=== PATIENT | female | born 1965 | race Caucasian/White ===

== ENCOUNTER 2023-10-13 13:52 | Outpatient (REF) | payer OTHER, SELFPAY ==
[2023-10-16 22:53] LABS: HPV mRNA E6/E7 Not Detected (Not Detected)
== END 2023-10-13 13:53 | disposition home or self-care (01) ==
LOC: HO.LNP 13:52
PROVIDERS: Visit Provider Obstetrics & Gynecology
DX: N93.9 Abnormal uterine and vaginal bleeding, unspecified (principal); N95.0 Postmenopausal bleeding
CPT/HCPCS: 58100; 87624; 88175; 88305; 99202

== ENCOUNTER 2023-10-13 13:52 | Outpatient (AMB) | payer OTHER, SELFPAY ==
--- NOTE | 2023-10-13 14:01 | A.OFFVIS_ITS ---
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 Required: No Information Interpreted: non-clinical & clinical Extrusion Bender: Extrusion Bender Present (Verónica Jaureguimarizol HUNG) Accompanied by: Self / Same As Patient Allergies No Known Allergies Allergy (Verified 10/13/23 14:06) Post menopausal: Yes HPI Comments Details: Presenting complaining of vaginal bleeding occurred a week ago, the patient went to the emergency room at [facility] had an ultrasound, endometrium was obscured the right and left ovary was on seeing the was no evidence of fibroid or adenomyosis or any other abnormality PFSH Medical History Encounter for Essure implantation HTN (hypertension) Hx of breast cancer Surgical History H/O lumpectomy Family History Father HTN (hypertension) Skin cancer Stroke Mother ALS (amyotrophic lateral sclerosis) Skin cancer Social History Household Members Other:: daughter Housing: House Alcohol intake: current Alcohol intake frequency: holidays/special occasions only Patient Tobacco Use Status: Former Tobacco user Tobacco use type: Cigarette Current occupational status: employed 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 Sexually active: Yes Sexual orientation: Straight/Heterosexual Gender identity: Female Review of Systems Const All systems reviewed & are unremarkable except as noted in HPI and below Physical Exam Vital Signs: Last Vital Signs BP 114/70 10/13/23 14:04 BMI result Body Mass Index 40.7 General: Yes no CVA tenderness External Female Exam: normal external appearance and normal appearance of the ur ethra Speculum Exam - Vagina: normal appearance of the vagina, normal palpation, no lesions and no masses Speculum Exam - Cervix: normal appearance of the cervix, normal palpation, no lesions, no masses and nontender Bimanual exam- vagina & uterus: normal bimanual exam, normal palpation, uterine size normal, normal palpation, uterine shape normal, No Cervical tenderness present and non-tender Bimanual Exam- Adnexa, other: normal adnexae Back/Spine/Pelvis Back: no CVA tenderness Office Procedures Endometrial Biopsy Details: The patient was counseled regarding the indication and benefits of endometrial sampling to rule out endometrial pathology including not limited to endometrial hyperplasia or endometrial cancer and others; The alternatives (Either do nothi ng vs. hysteroscopy D&C) & the risks were discussed with the patient including but not limited: pain, uterine perforation, bleeding, infection, possible injury to bladder, bowel, ureter, possible need for blood transfusion with all its possible risks. The patient verbalized understanding all questions answered and signed consent. The patient was placed into the dorsal lithotomy position; a speculum was inserted in the vagina. Using aseptic technique for the procedure, the cervix was cleansed with Betadine. The anterior lip of the cervix was grasped with a single tooth tenaculum. The uterus was sounded to 7 cm with a 4 mm Pipelle was used. Tissues samples were obtained and placed in formalin, in a patient labeled container and sent to the pathology department. At the end of the procedure, there was minimal bleeding noted The patient tolerated the procedure well and was discharged in good condition with the following instructions: Nothing in the vagina until the bleeding stops. No sex until the bleeding stops, to call if any of the following occurs: fever (>100.4), flu-like symptoms, abdominal pain, heavy bleeding, four smelling vaginal discharge. The patient was instructed to schedule a Follow up appointment in 2 weeks to discuss pathology results of the biopsy and treatment options. This note was generated with a voice recognition program. Some errors may have been overlooked during the review of this note. Sometimes these errors may affect the content or meaning of a given sentence. 38317-Ptqraamrufl Biopsy Assessment & Plan Assessment & Plan (1) Postmenopausal bleeding: Code(s): N95.0 - Postmenopausal bleeding Category: Medical Plan: Discussed with the patient the differential diagnosis of post menopausal bleeding with normal pelvic exam including but not limited to, endometrial hyperplasia, cancer, polyps and other causes; co testing done, Discussed with the patient the pelvic ultrasound findings, the endometrial stripe thickenss was not measured because it was obscured. Recommended to the patient that the next step is an endometrial sampling via hysteroscopy D&C possible polypectomy versus endometrial biopsy to r/o endometrial pathology including hyperplasia or cancer. All the pros and cons risks and benefits of each approach were discussed with the patient, endometrial biopsy being less invasive, office procedure with less sensitivity and inability diagnose a polyp and removal versus hysteroscopy done under anesthesia more invasive more sensitive to endometrial cancer and possibility of diagnosing and endometrial polyp with the possibility of polypectomy. All questions were answered pt verbalized understanding and decided to proceed with endometrial biopsy. EMB done, see procedure note. Instructions given the patient to schedule a 2 week follow-up appointment. This note was generated with a voice recognition program. Some errors may have been overlooked during the review of this note. Sometimes these errors may affect the content or meaning of a given sentence. Orders: Orders PAP + HPV E6/E7 rfx 18/45 Today N93.9 - Abnormal uterine and vaginal bleeding, unspecified Surgical Today N93.9 - Abnormal uterine and vaginal bleeding, unspecified AMB Endometrial Biopsy Today N95.0 - Postmenopausal bleeding Coding Level of Care Code New Pt Level 3 (40756) Procedure Only Diagnoses Postmenopausal bleeding N95.0 CPT Codes Endometrial Biopsy - CPT: 38671-Rgdqpnhvoec Biopsy ([id number])
[2023-10-13 14:04] VITALS: BP 114/70; BMI 40.7
== END 2023-10-13 14:57 | disposition home or self-care (01) ==
PROVIDERS: Visit Provider Obstetrics & Gynecology
DX: N95.0 Postmenopausal bleeding (principal)
CPT/HCPCS: 58100; 99203

== ENCOUNTER 2023-10-21 09:12 | Outpatient (AMB) | payer OTHER, SELFPAY ==
--- NOTE | 2023-10-21 09:23 | A.OFFVIS_ITS ---
Vital Signs 10/21/23 09:27 Height 5 ft 3 in Weight 229 lb 4.492 oz BMI 40.6 Intake Visit Reasons: emb results Facility Sales And Admin: Facility Sales And Admin Present Allergies No Known Allergies Allergy (Verified 10/13/23 14:06) Is last menstrual period known: Yes Last menstrual period: 01/04/20 Post menopausal: No Patient : No Do you need a note to return to daycare/school/sports/work: Yes (for surgery on wednesday) HPI Comments Details: The patient is presenting after endometrial biopsy. The patient has no complaints, no vaginal bleeding, no feverishness chills or abdominal pain. The endometrial biopsy pathology report showed the following: - Fragments of endometrial polyp. - Background benign endometrium with extensive stromal and epithelial breakdown. - No atypia identified. [facility] Medical History Encounter for Essure implantation HTN (hypertension) Hx of breast cancer Surgical History H/O lumpectomy Family History Father HTN (hypertension) Skin cancer Stroke Mother ALS (amyotrophic lateral sclerosis) Skin cancer Social History Household Members Other:: daughter Housing: House Alcohol intake: current Alcohol intake frequency: holidays/special occasions only Patient Tobacco Use Status: Former Tobacco user Tobacco use type: Cigarette Current occupational status: employed 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 Sexual orientation: Straight/Heterosexual Gender identity: Female Female Reproductive History Menstrual Date of last menstrual period: 01/04/20 Total pregnancies: 2 Full term: 2 Review of Systems Card Reports as per HPI and Reports no additional complaints Resp Reports as per HPI and Reports no additional complaints GI Reports as per HPI and Reports no additional complaints Reports as per HPI Physical Exam Vital Signs: BMI result Body Mass Index 40.6 Const General: cooperative, healthy appearing and comfortable Resp Effort & Inspection: normal respiratory effort Auscultation: clear to auscultation bilaterally Percussion: percussion normal Cardio Palpation: normal PMI Rate: regular rate Rhythm: regular rhythm Heart sounds: no murmurs and no rubs Peripheral pulses: Peripheral pulses 2+ throughout GI Inspection: Yes normal to inspection Palpation (GI): Soft to palpation, nontender, no guarding, not rigid and No hepatosplenomegaly present Percussion: Yes normal to percussion Auscultation: normal bowel sounds Rectal Exam - Female: deferred Assessment & Plan Assessment & Plan (1) Postmenopausal bleeding: Comment: Endometrial polyp on EMB pathology Essure implants Code(s): N95.0 - Postmenopausal bleeding Category: Medical Plan: Discussed with the patient the results the pathology showing endometrial polyp. Recommended hysteroscopy D&C possible polypectomy/myomectomy. Discussed with the patient the procedure , all benefits and risks including but not limited to inability to complete the procedure , insufficient endometrial tissue for a complete evaluation of the endometrial cavity , bleeding, infection, possible need for blood transfusion with all its risk ( HIV,syphilis, Hepatitis, anaphylaxis shock, others..), injury to bladder, rectum, possible need for laparoscopy/laparotomy or hysterectomy. The patient verbalized understanding and signed the consent. Instructions given the patient to stay NPO after midnight the day prior to the procedure and to take only the specific medication (s) discussed the morning of the surgical procedure and to schedule a 2 week postoperative appointment Coding Level of Care Code Est Pt Level 3 (51202) Diagnoses Postmenopausal bleeding N95.0
[2023-10-21 09:27] VITALS: BMI 40.6
== END 2023-10-21 09:52 | disposition home or self-care (01) ==
PROVIDERS: Visit Provider Obstetrics & Gynecology
DX: N95.0 Postmenopausal bleeding (principal)
CPT/HCPCS: 99213

== ENCOUNTER → 2023-10-21 09:12 | Outpatient (BNVA) | payer OTHER, SELFPAY | PROVIDERS: Visit Provider Obstetrics & Gynecology | DX: N95.0 Postmenopausal bleeding (principal) | CPT/HCPCS: 99212 ==

== ENCOUNTER 2023-11-05 09:14 | Day surgery (SDC) | payer OTHER, SELFPAY ==
[2023-11-03 07:39] VITALS: BMI 40.6
--- NOTE | 2023-11-03 13:06 | P.CONAN_ITS ---
Documented by User: Zohreh Amaya NP 11/03/23 13:07 HPI - Anesthesia Eval Consult details Narrative: 58yo F for D&C Hysteroscopy,possible myomectomy,possible polypectomy PMFSH Active Problems Active Problems: All Active Problems Postmenopausal bleeding (Acute) Past Medical History Medical History Encounter for Essure implantation HTN (hypertension) Hx of breast cancer Family History Family History Father HTN (hypertension) Skin cancer Stroke Mother ALS (amyotrophic lateral sclerosis) Skin cancer Surgical History Surgical History H/O lumpectomy Social History Social History Household Members Other:: daughter Housing: House Alcohol intake: current Alcohol intake frequency: holidays/special occasions only Patient Tobacco Use Status: Former Tobacco user Tobacco use type: Cigarette Use of substances other than those prescribed or required for medical reasons: No Are you DNR?: No Advance Directives: No Advance Directives Information Provided: Yes Recently lost weight without trying: No Current occupational status: employed 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 [employer] Sexual orientation: Straight/Heterosexual Gender identity: Female Meds Allergies Allergy/AdvReac Type Severity Reaction Status Date / Time No Known Allergies Allergy Verified 10/13/23 14:06 Home Medications ?Medication ?Instructions ?Recorded ?Confirmed ?Last Taken ?Type amlodipine 10 mg tablet 10 mg PO DAILY 10/13/23 Unknown History levothyroxine 50 mcg tablet 50 mcg PO DAILY 10/13/23 Unknown History olmesartan 20 mg tablet 30 mg PO 10/13/23 Unknown History Exam Height,Weight and Vital Signs: Height 5 ft 3 in Weight 103.873 kg Assessment and Plan Assessment Anesthesia Assessment: Chart Reviewed Documented by User: Monica Kwok MD 11/05/23 10:39 PMFSH Past Medical History Medical History Encounter for Essure implantation HTN (hypertension) Hx of breast cancer Family History Family History Father HTN (hypertension) Skin cancer Stroke Mother ALS (amyotrophic lateral sclerosis) Skin cancer Surgical History Surgical History H/O lumpectomy History of Problems with Anesthesia: No Social History Social History Household Members Other:: daughter Housing: House Alcohol intake: current Alcohol intake frequency: holidays/special occasions only Patient Tobacco Use Status: Former Tobacco user Tobacco use type: Cigarette Use of substances other than those prescribed or required for medical reasons: No Are you DNR?: No Advance Directives: No Advance Directives Information Provided: Yes Recently lost weight without trying: No Current occupational status: employed 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 Sexual orientation: Straight/Heterosexual Gender identity: Female Meds Allergies Allergy/AdvReac Type Severity Reaction Status Date / Time No Known Allergies Allergy Verified 10/13/23 14:06 Home Medications ?Medication ?Instructions ?Recorded ?Confirmed ?Last Taken ?Type amlodipine 10 mg tablet 10 mg PO DAILY 10/13/23 Unknown History levothyroxine 50 mcg tablet 50 mcg PO DAILY 10/13/23 Unknown History olmesartan 20 mg tablet 30 mg PO 10/13/23 Unknown History Exam Airway Mallampati Class: II TM Dist: >3cm Neck ROM: Full Loose/Missing/Broken Teeth: No Heart: RRR Lungs: CTA Assessment and Plan Assessment Anesthesia Assessment: Anesthesia Plan Discussed Final Anesthetic Review History of Problems with Anesthesia: No NPO: Yes ASA Class: II Final Preanesthetic Review: Meds/Allgs Chart Reviewed, Consent Obtained/Reviewed and Anes Risks/Benef Reviewed Patient Risk: Low Procedure Risk: Low Anesthetic Plan Anesthetic Plan: MAC: Disposition: Standard PACU
[2023-11-05 09:42] VITALS: BMI 41.6
[2023-11-05 09:57] VITALS: BP 132/67; PULSE 83; RESP 18; TEMP 36.9; O2SAT 98
[2023-11-05] MEDS: Lactated Ringers 1,000 ML 100 ML IVCONT (10:13)
--- NOTE | 2023-11-05 10:16 | MHC.SHP ---
Pre-Procedural Eval Section A - 24 Hr Update-Section A only Date of Service: 11/05/23 The patient is an INPATIENT: No Changes since office visit: No Cold of Flu in the past 2 weeks, No New Medical Problems, No Changes in Medication and No Patient answered all questions The patient has been examined within 24 hours of the surgical procedure. The History & Physical has been completed within 30 days and I have reviewed it.: Yes Section B - Complete if H&P > 30 days Chief Complaint: Postmenopausal bleeding Allergies: Allergies Allergy/AdvReac Type Severity Reaction Status Date / Time No Known Allergies Allergy Verified 10/13/23 14:06 Plan Diagnosis/Plan: Unchanged I have reviewed the history and physical and performed a pertinent physical examination on my patient. No changes have occurred unless specified. Time Spent With Patient Time: Total time managing care of this patient today ____ minutes.
[2023-11-05 10:53] VITALS: BP 103/55; PULSE 82; RESP 18; TEMP 36.6; O2SAT 98
--- NOTE | 2023-11-05 10:57 | PM.OP ---
Brief Operative Note Date of Service: 11/05/23 Pre-op diagnosis: Postmenopausal bleeding with a polyp on EMB pathology Post-op diagnosis: same Procedure: Hysteroscopy D&C, Polypectomy Surgeon: Cody Rosales MD Anesthesia: GLMA Was an Boilermaker Industrial Boilers used for this Procedure?: No Estimated blood loss (mL): 0 Pathology: other (Endometrial Scrapping. Polyp) Condition: stable Disposition: PACU
[2023-11-05 10:58] VITALS: BP 99/61; PULSE 74; RESP 18; O2SAT 98
--- NOTE | 2023-11-05 10:58 | P.OP_ITS ---
Operative Note Operative Note Date of Service: 11/05/23 Narrative: Preop Diagnosis: Postmenopausal bleeding with Endometrial polyp on EMB pathology Operation: Diagnostic Hysteroscopy, Dilataion & Curettage and polypectomy Post Op Diagnosis: Endometrial Polyp QBL: Minimal Anesthesia: GLMA Surgeon: Cody Rosales MD Chain Sales Consultant: None Complication: None Pathology: Endometrial Scrapings, Endometrial polyp Procedure: The patient was put in the dorsal lithotomy position, scrubbed, and draped in the usual manner. A sterile speculum was inserted in the patient's vagina. The anterior lip of the cervix was grasped with a single tooth tenaculum. The cervix was dilated up to 5 mm, then the scope was inserted in the patient's uterus. Inspection revealed endometrial polyp. The Myosure Reach device was used; it was introduced through the operative channel and polypectomy done with no complications. The scope was then taken out from the uterine cavity, sharp curettings was carried on with minimal to moderate amount of tissues retrieved. At the end of the procedure, all instruments were taken out of the patient uterine and vaginal cavity. The single tooth tenaculum was removed and homeostasis was assured using pressure,. The patient tolerated the procedure well and was transferred to the PACU in a stable condition.
[2023-11-05 11:03] VITALS: BP 107/66; PULSE 66; RESP 17; O2SAT 95
[2023-11-05 11:08] VITALS: BP 107/66; PULSE 66; RESP 17; TEMP 36.6; O2SAT 95
[2023-11-05 11:24] VITALS: BP 125/69; PULSE 68; RESP 18; TEMP 36.6; O2SAT 97
== END 2023-11-05 11:55 | disposition home or self-care (01) ==
PROVIDERS: PCP Nurse Practitioner Family; Visit Provider Obstetrics & Gynecology
PROC: 0UDB8ZZ Extraction of Endometrium, Via Natural or Artificial Opening Endoscopic (ICD-10-PCS; CPT 58558; principal; 2023-11-05 11:00)
DX: N95.0 Postmenopausal bleeding (principal); N84.0 Polyp of corpus uteri; I10 Essential (primary) hypertension; Z85.3 Personal history of malignant neoplasm of breast; Z79.899 Other long term (current) drug therapy; Z87.891 Personal history of nicotine dependence
CPT/HCPCS: 58558; 88305; J1100; J1885; J2250; J2405; J2704; J3010

== ENCOUNTER → 2023-11-05 09:14 | Outpatient (BNV) | payer OTHER, SELFPAY | PROVIDERS: PCP Nurse Practitioner Family; Visit Provider Obstetrics & Gynecology | DX: N95.0 Postmenopausal bleeding (principal); N84.0 Polyp of corpus uteri | CPT/HCPCS: 58558 ==

== ENCOUNTER 2023-11-15 13:40 | Outpatient (AMB) | payer OTHER, SELFPAY ==
--- NOTE | 2023-11-15 13:46 | A.OFFVIS_ITS ---
Vital Signs 11/15/23 13:48 Height 5 ft 3 in Weight 229 lb BMI 40.6 Intake Visit Reasons: post op Allergies No Known Allergies Allergy (Verified 10/13/23 14:06) HPI Comments Details: The patient is presenting post hysteroscopy D&C no complaints minimal vaginal bleeding no feverishness chills or abdominal pain. The pathology showed the following: A. Endometrium, curettage: Inactive endometrium; no atypia or hyperplasia identified. B. Endometrium, polypectomy: - Fragments of inactive endometrium with some features of endometrial polyp. - Prominent fragments of benign-appearing smooth muscle. - No atypia identified. Comment: The findings in part B may represent a leiomyoma as well. [facility] Medical History Encounter for Essure implantation HTN (hypertension) Hx of breast cancer Surgical History H/O lumpectomy Family History Father HTN (hypertension) Skin cancer Stroke Mother ALS (amyotrophic lateral sclerosis) Skin cancer Social History Household Members Other:: daughter Housing: House Alcohol intake: current Alcohol intake frequency: holidays/special occasions only Patient Tobacco Use Status: Former Tobacco user Tobacco use type: Cigarette Current occupational status: employed 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 Sexual orientation: Straight/Heterosexual Gender identity: Female Review of Systems Const All systems reviewed & are unremarkable except as noted in HPI and below Reports as per HPI and Reports no additional complaints GI Reports no additional complaints Reports no additional complaints Physical Exam Vital Signs: BMI result Body Mass Index 40.6 Assessment & Plan Assessment & Plan (1) Postmenopausal bleeding: Code(s): N95.0 - Postmenopausal bleeding Category: Medical Plan: Discussed with the patient the results of the endometrial biopsy. Discussed with the patient the sensitivity, specificity, positive and negative predictive value, of endometrial biopsy in detecting endometrial pathology including but not limited to endometrial hyperplasia, cancer and other pathology; instructed the patient to call in case vaginal bleeding bleeding recurs, the next step will be to proceed with further endometrial sampling evaluation to rule out endometrial pathology. All questions answered and the patient verbalized understanding and agreed with the plan. Coding Level of Care Code Est Pt Level 3 (28172) Diagnoses Postmenopausal bleeding N95.0
[2023-11-15 13:48] VITALS: BMI 40.6
== END 2023-11-15 14:28 | disposition home or self-care (01) ==
LOC: HO.HWS 13:40
PROVIDERS: PCP Nurse Practitioner Family; Visit Provider Obstetrics & Gynecology
DX: N95.0 Postmenopausal bleeding (principal)
CPT/HCPCS: 99213

== ENCOUNTER → 2023-11-15 13:40 | Outpatient (BNVA) | payer OTHER, SELFPAY | PROVIDERS: PCP Nurse Practitioner Family; Visit Provider Obstetrics & Gynecology | DX: N95.0 Postmenopausal bleeding (principal); Z98.890 Other specified postprocedural states | CPT/HCPCS: 99212 ==

== ENCOUNTER → 2023-12-09 14:21 | Outpatient (BNV) | payer OTHER, SELFPAY | PROVIDERS: PCP Nurse Practitioner Family; Visit Provider Internal Medicine Medical Oncology | DX: C50.911 Malignant neoplasm of unspecified site of right female breast (principal) | CPT/HCPCS: 99204 ==

== ENCOUNTER 2023-12-28 10:33 | Outpatient (AMB) | payer OTHER, SELFPAY ==
--- NOTE | 2023-12-28 10:53 | MHC.PC.OV ---
Vital Signs 12/28/23 10:56 Height 5 ft 3 in Weight 235 lb 2 oz BMI 41.6 BP 136/74 Blood Pressure Location Lt brachial Position Sitting Respiration 15 Pulse 97 Pulse Source Pulse Oximeter Pulse Oximetry (%) 97 Oxygen Delivery Method Room Air Intake Visit Reasons: REED DIPPER-f/u meds Intake Note: new patient to establish care Allergies No Known Allergies Allergy (Verified 12/28/23 11:14) Medication List - Last Reconciled 12/28/23 by Noemi Blackman [facility]- amlodipine 10 mg PO DAILY levothyroxine 50 mcg PO DAILY olmesartan 30 mg PO DAILY Tobacco use date assessed: 12/28/23 Dental Screening Dental Screen Date: 12/28/23 Did you have a dental visit in the last 12 months?: Yes Did you have a dental problem in the last 6 months where you did not have access to dental care?: No Was dental information given to patient?: Patient has dentist HPI HPI Comments History of Present Illness Details 58 y/o with right breast cancer lower outer quadrant Stage 1: pT1c, pN0 ER and ID positive, HER2 [place] negative s/p excision followed by radiation therapy, HTN, hypothyroid, IFG, obesity, tubular adenoma, L frozen shoulder, hyperlipidemia, fatty liver s/p Excisional biopsy of the breast/radioactive seed 12/22/2017, hysteroscopy D&C 2023 FAMILY HISTORY: Mom had ALS. Maternal grandma had breast cancer at the age of 68. Both mom and dad had skin cancer. Dad of heart attack. Mom had osteoporosis. 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 She is . Has 3 children. He smoked a pack a day quit 28 years ago. She drinks socially. Health Maintenance Pap 10/13/23 WNL Colon 10/17/2018 [facility] tubular adenoma, repeat 2023 referred to [facility] Mammo 12/11/23 [place] - need report DEXA ordered by [facility], results ... [facility] [employer] Heme q 6 mo GI Ortho Labs 12/09/23 normal CBC, Bun 25, Cr 1.37 egfr40 otherwise normal CMP, Vit D normal [facility]. Old records reviewed. Wants to talk about her weight. Did wt watchers in the past. Started Noom 2 days ago. Will see how this goes, wonders about meds. Has never taken meds for wt loss. Has never worked w/ shield installer. Tries to get 7000 steps/day. Mild VALERIO does not think needs counseling declined meds trouble falling asleep lately Has been getting muscle cramps taking pickle juice with + effect BP controlled on current meds Tolerant and compliant of levothyroxine. Denies nodules or surgery. Denies sx. Due for repeat colon; needs referral Exam: Awake alert NAD Thyroid nontender RRR LS CTAB No edema in BLE Mood and affect appropriate Plan: Check labs today - normal except elevated cholesterol and mild increase in LFTs If TPO AB negative and TSH normal consider stopping levothyroxine If + will cont on and titrate to euthyroid Cont BP med at this time Check labs to see if anything is contributing to wt gain/muscle cramps Refer to [facility] GI for repeat colon RTO 3-4 weeks to discuss labs and come up w a treatment plan, sooner PRN This note is constructed using voice recognition software. While every effort has been made to ensure accuracy in retail pharmacy technician, still errors may have been included Sometimes, these errors may affect the content or meaning of the given sentence . Total time spent caring for the patient today was 45 minutes. This includes time spent before the visit reviewing the chart, time spent during the visit, and time spent after the visit on documentation [facility] Medical History (Updated 12/28/23 @ 16:46 by Noemi Blackman, [facility]) Thyroid disease Encounter for Essure implantation HTN (hypertension) Hx of breast cancer Surgical History (Updated 12/09/23 @ 14:56 by Christianne Galaviz MD) H/O lumpectomy Family History (Updated 12/28/23 @ 10:59 by Destiny Calero MA) Father HTN (hypertension) Skin cancer Stroke Substance abuse Mother ALS (amyotrophic lateral sclerosis) Skin cancer Social History (Updated 12/28/23 @ 10:59 by Destiny Calero MA) Household Members: Family Household Members Other:: daughter Housing: House Are you a primary eye care professional to a significant other at home: Yes Do you presently have visiting nurse or other home services: No Alcohol intake: current Alcohol intake frequency: holidays/special occasions only Patient Tobacco Use Status: Former Tobacco user Tobacco use type: Cigarette e-Cigarette/Vaping Use: Never Used service: No Current occupational status: employed 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 Sexual orientation: Straight/Heterosexual Gender identity: Female Cognitive needs: No Hearing needs: No Vision needs: Yes (contacts) Questionnaire PHQ-9 Over the last 2 weeks, how often have you been bothered by any of the following problems? 1. Little interest or pleasure in doing things: not at all 2. Feeling down, depressed, or hopeless: not at all 3. Trouble falling or staying asleep, or sleeping too much: several days 4. Feeling tired or having little energy: several days 5. Poor appetite or overeating: several days 6. Feeling bad about yourself - or that you are a failure or have let yourself or your family down: not at all 7. Trouble concentrating on things, such as reading the newspaper or watching television: not at all 8. Moving or speaking so slowly that other people could have noticed. Or the opposite - being so fidgety or restless that you have been moving around a lot more than usual: not at all 9. Thoughts that you would be better off or of hurting yourself in some way: not at all Total score: 3 Depression Screening Interpretation: Negative Depression Screening Done: Yes 67786 - PHQ-9 Billing: Yes Source: Developed by Drs. Octavio Rosario, Jaida Butterfield, Sebastian Zaragoza and colleagues, with an educational elisabeth from [employer]. Thrive Questionnaire Date Thrive assessed: 12/28/23 I am a: Patient What is your living situation today?: I have a steady place to live Within the past 12 months, did the food you bought not last and you didn't have the money to get more?: Never true Within the past 12 months, did you worry whether your food would run out before you got money to buy more?: Never true Do you have trouble paying for medicines?: No Do you have trouble getting transportation to medical appointments?: No Do you have trouble paying your heating and electricity bill?: No Do you have trouble taking care of your child, family member or friend?: No Do you have trouble with day-to-day activities such as bathing, preparing meals, shopping, managing finances, etc.?: No Are you currently unemployed and looking for a job?: No Are you interested in more education?: No Please select the resources that you would like help with: None Currently or been in a relationship where the following occur: No concerns reported THRIVE Score: 0 AUDIT C Alcohol Use Questionnaire (AUDIT-C) 1. How often do you have a drink containing alcohol?: 2-4 times a month 2. How many drinks containing alcohol do you have on a typical day when you are drinking?: 3 or 4 3. How often do you have six or more drinks on one occasion?: Never Total Score: 3 Score Reviewed/Action Taken: Yes VALERIO-7 AMB Questionnaire VALERIO-7 Date VALERIO - 7 assessed: 12/28/23 Feeling nervous, anxious, or on edge: 1 = Several days Not being able to stop or control worryin = Several days Worrying too much about different things: 1 = Several days Trouble relaxin = Not at all Being so restless that it is hard to sit still: 0 = Not at all Becoming easily annoyed or irritable: 0 = Not at all Feeling afraid as if something awful might happen: 0 = Not at all Total VALERIO-7 score (0-4 normal; 5-9 mild; 10-14 moderate; 15-21 severe): 3 Source: Developed by Drs. Octavio Rosario, Jaida Butterfield, Sebastian Zaragoza and colleagues, with an educational elisabeth from [employer]. VALERIO-7 Assessment Billing VALERIO-7 Assessment Tool: VALERIO-7 Assessment 18907 Physical exam (Primary Care) Vital Signs: Last Vital Signs Pulse 97 12/28/23 10:56 Resp 15 12/28/23 10:56 BP 136/74 12/28/23 10:56 Pulse Ox 97 12/28/23 10:56 Oxygen Delivery Method Room Air 12/28/23 10:56 BMI result Body Mass Index 41.6 BMI Assessment/Plan discussion: High BMI High, discussed plan: lifestyle Tobacco/Smoking Status: Tobacco use Status Tobacco use date assessed 12/28/23 12/28/23 11:00 Patient Tobacco Use Status Former Tobacco user 12/28/23 10:59 Tobacco use type Cigarette 12/28/23 10:59 e-Cigarette/Vaping Use Never Used 12/28/23 11:00 PHQ-9: PHQ-9 Score PHQ-9: Total score 3 12/28/23 15:12 Depression Screening Interpretation: Negative Thrive Assessment: Date of Thrive Assessment Date Thrive assessed 12/28/23 12/28/23 10:55 Currently or been in a relationship where the following occur: No concerns reported Coding Level of Care Code New Pt Level 4 (36394) Complex EM visit Add On G2211 Diagnoses Acquired hypothyroidism E03.9 Hypothyroidism type: acquired Prediabetes R73.03 Muscle cramps R25.2 Tubular adenoma D36.9 Body mass index (BMI) of 40.1 to 44.9 in adult Z68.41 Class 3 obesity E66.813 Moderate mixed hyperlipidemia not requiring statin therapy E78.2 Hyperlipidemia type: moderate mixed hyperlipidemia not requiring statin therapy Fatty liver K76.0 Primary hypertension I10 Hypertension type: primary hypertension Screen for colon cancer Z12.11 Additional Codes VALERIO-7 Assessment Billing - VALERIO-7 Assessment Tool: VALERIO-7 Assessment 58616 ([id number]) Assessment & Plan Assessment & Plan (1) Hypothyroidism: Code(s): E03.9 - Hypothyroidism, unspecified Category: Medical Qualifiers: Hypothyroidism type: acquired Qualified Code(s): E03.9 - Hypothyroidism, unspecified Plan: . (2) Prediabetes: Code(s): R73.03 - Prediabetes Category: Medical Plan: . (3) Muscle cramps: Code(s): R25.2 - Cramp and spasm Category: Medical Plan: . (4) Tubular adenoma: Comment: of colon, repeat due 2023 Code(s): D36.9 - Benign neoplasm, unspecified site Category: Medical Plan: . (5) Body mass index (BMI) of 40.1 to 44.9 in adult: Code(s): Z68.41 - Body mass index [BMI] 40.0-44.9, adult Category: Medical Plan: . (6) Class 3 obesity: Code(s): E66.813 - Obesity, class 3 Category: Medical Plan: . (7) Hyperlipidemia: Code(s): E78.5 - Hyperlipidemia, unspecified Category: Medical Qualifiers: Hyperlipidemia type: moderate mixed hyperlipidemia not requiring statin therapy Qualified Code(s): E78.2 - Mixed hyperlipidemia Plan: . (8) Fatty liver: Code(s): K76.0 - Fatty (change of) liver, not elsewhere classified Category: Medical Plan: . (9) HTN (hypertension): Code(s): I10 - Essential (primary) hypertension Category: Medical Qualifiers: Hypertension type: primary hypertension Qualified Code(s): I10 - Essential (primary) hypertension Plan: . (10) Screen for colon cancer: Code(s): Z12.11 - Encounter for screening for malignant neoplasm of colon Category: Medical Plan: . Orders: Orders TSH reflex Free T4 Today E03.9 - Hypothyroidism, unspecified, R73.03 - Prediabetes Comprehensive Met. Panel Today E03.9 - Hypothyroidism, unspecified, R73.03 - Prediabetes Magnesium Today R25.2 - Cramp and spasm Ferritin Today R25.2 - Cramp and spasm Hemoglobin A1c Today E03.9 - Hypothyroidism, unspecified, R73.03 - Prediabetes Lipid Panel Today E03.9 - Hypothyroidism, unspecified, R73.03 - Prediabetes Thyroid Peroxidase Antibodies Today E03.9 - Hypothyroidism, unspecified, R73.03 - Prediabetes Thyroglobulin Antibodies Today E03.9 - Hypothyroidism, unspecified, R73.03 - Prediabetes Phosphorus Today R25.2 - Cramp and spasm Referrals Gastroenterology Referral D36.9 - Benign neoplasm, unspecified site, Z12.11 - Encounter for screening for malignant neoplasm of colon Patient Instructions: Walk-In Care (Urgent Care): We Make it Easy Walk-in for urgent medical issues such as: ? Seasonal Allergies ? Insect Bites ? Cough ? Diarrhea ? Acute Asthma Attacks ? Back, Knee or Joint Pain ? Ear Infection ? Fever without a Rash ? Headaches ? Nausea ? [place] Eye, Rash or Skin Irritation ? Sore Throat ? Sports Physicals ? Vomiting Most insurances are accepted. Patients do not need to be part of the [facility] to seek care at the walk-in clinic. Locations [facility] [address], [place] [address] ? [phone] [facility] in [place] provides services to ages 18 and over. Open Wednesday-Wednesday: 8 a.m. to 5 p.m. and Wednesday: 9 a.m. to 3 p.m.* *Hours may vary due to staffing availability. To confirm Walk-In Care hours in [place], please call [phone]. [address] [place] [address], [place] [address] ? [phone] [facility] in [place] provides services to ages 12 and over. Open Wednesday-Wednesday: 8 a.m. to 5 p.m. Hours may vary due to staffing availability. To confirm Walk-In Care hours in [place], please call [phone]. LABORATORY SERVICES: [facility] Lab ? Primary Location [address] [place] [address] Wednesday through Wednesday 6:00 AM ? 5:00 PM Wednesday 7:00 AM ? 11:00 AM* [phone] The [facility] Lab is centrally located near the front entrance of the [facility] for easy outpatient access. Convenient parking is provided for outpatients. *Hours may vary due to staffing availability. To confirm Laboratory hours for any location, please call [phone]. Offsite Location For your convenience, we offer offsite laboratory draw stations at the following locations: [address] [place] [address] ? [address], [address] Wednesday through Wednesday 7:30 AM ? 1:00 PM* [phone] *Hours may vary due to staffing availability. To confirm Laboratory hours for any location, please call [phone]. [place] ? [address] Wednesday through Wednesday 6:00 AM ? 3:30 PM* Wednesday 6:30 AM ? 3 PM* [phone] *Hours may vary due to staffing availability. To confirm Laboratory hours for any location, please call [phone] [place] [address] Wednesday through Wednesday 7:30 AM ? 4:00 PM* [phone] *Hours may vary due to staffing availability. To confirm Laboratory hours for any location, please call [phone] [place] [address] Wednesday through 9:00 AM ? 4:00 PM* *Hours may vary due to staffing availability. To confirm Laboratory hours for any location, please call [phone]. Appointments are not necessary. Walk-ins are welcome. Like all the departments throughout the [facility], our Lab undergoes frequent reviews to ensure the quality and accuracy of test results, and our staff takes special pride in its status as a nationally accredited facility. Patient Portal: ONE PATIENT. ONE RECORD. BETTER CARE. [facility] has a fully integrated, cutting-edge mobile electronic health information system that has revolutionized the way we care for our patients and manage our organization. This system improves communication and coordination enabling us to provide safe, higher-quality care, and an overall positive experience for staff and patients. Our first priority, as always, is to deliver the highest quality care possible. The system is running in the background supporting that priority. This portal is for all [facility] services and practices. If you are experiencing any technical difficulties with enrolling or logging into the Patient Portal please complete the [facility] Patient Portal Technical Support Form. [facility] now offers a new secure on-line interactive tool for patients to review their health information ? Patient Portal. This interactive web portal will enable patients and their families to take an active role in their care by providing easy, secure access to their health information via the internet. The Patient Portal provides patients with instant access to their health information, including laboratory results, medications, allergies, demographic information, visit history, and more. In addition to managing their own care, parents and health care proxies with authorized consent will appreciate the ability to access the records of those individuals for whom they provide care. Please note: if you wish to gain access (Proxy) to another patient?s portal, you will be required to come to the Medical Records Department in person at [facility]. Both the patient giving proxy access and the proxy will need to provide photo identification and complete the appropriate authorization. The Patient Portal also allows track their appointments online. The [facility] Patient Portal also saves patients time by allowing them to submit updates to their demographic and contact information prior to their visits. Portal email notifications will also alert patients to any new activity on their portal, such as test results and new appointments. In order to initially enroll in the [facility] Patient Portal, you will need to enter some required information including the following: ? your [facility] Medical Record number ? your personal home email address ? name ? date of Please note: In order to enroll in the [facility] Patient Portal, we need to have your email address on file in your electronic medical record. The email address needs to be specific for one person (yourself) in order for your Portal enrollment to be successful. You can update your email address in person with our Registration staff when you are registering for a hospital visit. Otherwise, you will need to come to the Health Information Management (Medical Records) Department at [facility]. We are open from Wednesday ? Wednesday from 7:30 a.m. ? 4:30 p.m. You will be required to present a photo id. Once you have successfully enrolled in the Patient Portal, you will receive a one-time user id and password for the Portal, sent to your email address. This will allow you to log into the Patient Portal within 99 hrs and reset your own logon id and password, and define personal security questions. Once your permanent login and password have been set, you can log into the [facility] Patient Portal at any time via the blue button above or from the Portal Logon button on any page of the [facility] website. [facility] and [facility] encourage all of our patients to enroll in Patient Portal as it presents a valuable opportunity for patients and their families to actively participate in their care and stay healthy Welcome to [facility]. We look forward to working with you.
[2023-12-28 10:56] VITALS: BP 136/74; PULSE 97; RESP 15; O2SAT 97; BMI 41.6
== END 2023-12-28 11:35 | disposition home or self-care (01) ==
PROVIDERS: PCP Nurse Practitioner Family; Visit Provider Nurse Practitioner Family
DX: E03.9 Hypothyroidism, unspecified (principal); Z68.41 Body mass index [BMI] 40.0-44.9, adult; R73.03 Prediabetes; E66.813 Obesity, class 3; R25.2 Cramp and spasm; D36.9 Benign neoplasm, unspecified site; E78.2 Mixed hyperlipidemia; K76.0 Fatty (change of) liver, not elsewhere classified; I10 Essential (primary) hypertension; Z12.11 Encounter for screening for malignant neoplasm of colon

== ENCOUNTER → 2023-12-28 10:33 | Outpatient (BNVA) | payer OTHER, SELFPAY | PROVIDERS: PCP Nurse Practitioner Family; Visit Provider Nurse Practitioner Family ==

== ENCOUNTER 2023-12-28 11:47 | Outpatient (REF) | payer OTHER, SELFPAY ==
[2023-12-28 14:37] LABS: Estimated Average Glucose 114 mg/dL; Hemoglobin A1C 124.8316 umol/L; Hemoglobin A1c % 5.6 % (<6.0); Total Hemoglobin (HGBA1C) 3304.1212 umol/L
[2023-12-28 14:59] LABS: Alanine Aminotransferase 38 U/L (0-31); Albumin Level 4.6 g/dL (3.5-5.0); Alkaline Phosphatase 80 U/L (39-117); Anion Gap 12 (12-20); Aspartate Amino Transferase 33 U/L (5-31); Bilirubin Total 0.6 mg/dL (0.0-1.0); Blood Urea Nitrogen 18 mg/dL (9-16); Carbon Dioxide 28 mmol/L (22-29); Chloride 103 mmol/L (96-108); Cholesterol 228 mg/dL (<200); Estimated Glomerular Filt Rate 59; Glucose Random 104 mg/dL (60-115); HDL Cholesterol 52 mg/dL (>40); LDL Cholesterol Calculated 151 mg/dL (<100); Magnesium 2.1 mg/dL (1.6-2.6); Phosphorus 3.7 mg/dL (2.7-4.5); Potassium 4.2 mmol/L (3.3-5.1); Sodium 139 mmol/L (135-145); Total Protein 7.7 g/dL (6.5-8.0); Triglycerides 127 mg/dL (<150)
[2023-12-28 15:05] LABS: Ferritin 88 ng/mL (10-250); TSH reflex Free T4 2.24 uIU/mL (0.32-4.0)
[2023-12-29 23:24] LABS: Thyroglobulin Antibodies 1 IU/mL (< or = 1); Thyroid Peroxidase Antibodies 1 IU/mL (<9)
== END 2023-12-28 11:48 | disposition home or self-care (01) ==
LOC: HO.WFDLDS 11:47
PROVIDERS: Visit Provider Nurse Practitioner Family
DX: E03.9 Hypothyroidism, unspecified (principal); R73.03 Prediabetes; R25.2 Cramp and spasm; E66.813 Obesity, class 3; Z68.41 Body mass index [BMI] 40.0-44.9, adult; I10 Essential (primary) hypertension; E78.2 Mixed hyperlipidemia
CPT/HCPCS: 36415; 80053; 80061; 82728; 83036; 83735; 84100; 84443; 86376; 86800; 96127; 99202

== ENCOUNTER 2023-12-30 13:36 | Outpatient (REF) | payer OTHER, SELFPAY ==
--- NOTE | ~2023-12-30 | MM_ITS ---
EXAMINATION: BONE DENSITOMETRY CLINICAL INDICATION: Osteopenia. Breast cancer, has been taking aromatase inhibitors. COMPARISON: This is the patient's baseline examination. TECHNIQUE: Using a [employer] DXA System (software version: 13.1) manufactured by [employer], dual-energy x-ray absorptiometry was performed of the lumbar spine and left hip. The images are of good technical quality. Summary results are attached. FINDINGS: LEFT FEMUR, NECK: BMD 1.046 g/cm2, Z-score 0.4, T-score 0.1, normal. LEFT FEMUR, TOTAL: BMD 1.171 g/cm2, Z-score 1.2, T-score 1.3, normal. AP SPINE L1-L4: BMD 1.354 g/cm2, Z-score 1.2, T-score 1.4, normal. IDENTIFIED RISK FACTORS: Menopause. HISTORY OF FRACTURE: None listed. MEDICATIONS: Multivitamin, ERT/SERMS. MM/XR DEXA axial skeleton IMPRESSION: 1. DIAGNOSIS: Normal bone density based on the lowest T-score value of 0.1 in the femoral neck applying World Health Organization criteria. 2. 10-YEAR FRACTURE RISK PREDICTION, FRAX: According to the guidelines, FRAX calculation should only be performed on patients in the osteopenia bone density category. Therefore, FRAX was not performed on this patient. 3. Treatment Recommendations: NOF guidelines recommend consideration for treatment in postmenopausal women and men age 50 and older presenting with the following: -A hip or vertebral (clinical or morphometric) fracture. -T-score less than or equal to -2.5 at the femoral neck or spine after appropriate evaluation to exclude secondary causes. -Low bone mass at the hip or spine and a 10-year fracture probability by FRAX of greater than or equal to 3% for hip fracture or greater than or equal to 20% for major osteoporotic fracture based on the [place] adapted WHO algorithm. 4. Other Recommendations: All treatment decisions require clinical judgment and consideration of individual patient factors, including patient preferences, comorbidities, previous drug use, risk factors not captured in the FRAX model (e.g. frailty, falls, vitamin D deficiency, increased bone turnover, interval significant decline in bone density) and possible under or overestimation of fracture risk by FRAX. FUTURE SCAN RECOMMENDATION: People with diagnosed cases of osteoporosis or at high risk for fracture should have regular bone mineral density tests. For patients eligible for Medicare, routine testing is allowed once every 2 years. The testing frequency can be increased to one year for patients who have rapidly progressing disease, those who are receiving or discontinuing medical therapy to restore bone mass, or have additional risk factors. Electronically signed by: Hayden Nice MD 01/04/2024 08:18 AM EDT
== END 2023-12-30 13:37 | disposition home or self-care (01) ==
LOC: HO.MAMMO 13:36
PROVIDERS: PCP Nurse Practitioner Family; Visit Provider Internal Medicine Medical Oncology
DX: M85.80 Other specified disorders of bone density and structure, unspecified site (principal); C50.919 Malignant neoplasm of unspecified site of unspecified female breast; Z79.811 Long term (current) use of aromatase inhibitors
CPT/HCPCS: 77080

== ENCOUNTER 2024-01-19 13:25 | Outpatient (AMB) | payer OTHER, SELFPAY ==
--- NOTE | 2024-01-19 13:27 | A.OFFPC_ITS ---
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: No Is last menstrual period known: No Post menopausal: No Patient : No Allergies No Known Allergies Allergy (Verified 01/19/24 13:50) Medication List - Last Reconciled 01/19/24 by XIANG IrvingP- amlodipine 10 mg PO DAILY levothyroxine 50 mcg PO DAILY olmesartan 30 mg PO DAILY Tobacco use date assessed: 01/19/24 Dental Screening Dental Screen Date: 01/19/24 Did you have a dental visit in the last 12 months?: Yes Did you have a dental problem in the last 6 months where you did not have access to dental care?: No Was dental information given to patient?: Patient has dentist HPI HPI Comments History of Present Illness Details 58 y/o with right breast cancer lower ou ter quadrant Stage 1: pT1c, pN0 ER and OK positive, HER2 [place] negative s/p excision followed by radiation therapy, HTN, hypothyroid, IFG, obesity, tubular adenoma, L frozen shoulder, hyperlipidemia, fatty liver s/p Excisional biopsy of the breast/radioactive seed 12/22/2017, hysteroscopy D&C 2023 FAMILY HISTORY: Mom had ALS. Maternal grandma had breast cancer at the age of 68. Both mom and dad had skin cancer. Dad of heart attack. Mom had osteoporosis. 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 She is . Has 3 children. He smoked a pack a day quit 28 years ago. She drinks socially. Health Maintenance Pap 10/13/23 WNL Colon 10/17/2018 [facility] tubular adenoma, repeat 2023 referred to [facility] Mammo 12/11/23 [place] - need report DEXA ordered by [facility], results ... 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 Labs 12/09/23 normal CBC, Bun 25, Cr 1.37 egfr40 otherwise normal CMP, Vit D normal She reports that she was dehydrated during this lab draw. She was encouraged to liberally hydrate and repeat her labs. Repeat labs show improved BUN, creatinine and EGFR, mild elevation in AST and ALT, hyperlipidemia Wt down 8 lbs using Noom, exercising. Had some right low back pain but wonders if this is related to exercising. She is euthyroid and her thyroid antibodies are negative. Discuss at the last office visit taking her off of levothyroxine and she is willing to proceed at this time. Reviewed with her elevated LFTs and hyperlipidemia. Interested in web project manager referral Pickle juice is controlling her cramps Due for repeat colon; referral placed, appointment pending. Exam: Awake alert NAD Thyroid nontender RRR LS CTAB No edema in BLE Mood and affect appropriate Plan 15 minutes spent Discussing different fo mari of medications to help with weight loss. Discouraged the use of GLP-1s due to the need to use lifelong, weight gain after discontinuation, cost and cancer risk. Educated about the use of Wellbutrin which can be used in patients without a seizure history. This medication works by blocking out the reward center related to mindless eating. It also has a mild stimulating effect. The side effect profile includes mild anxiety as well as a slight dizzy sensation. Another medication used is metformin, this is a diabetic medication. This medication has GI side effects. But can be very beneficial in aiding with weight loss in patients without diabetes. Topiramate was also discussed. This is a seizure medication with side effect profile that includes need to monitor LFTs as well as blood counts. One of the side effects is weight loss. Another medication, Phentermine is a stimulant/controlled substance. This is an anorexient that is used short-term medication used. =. Finally the use of a medication called Contrave, which is Wellbutrin + naltrexone can be used. The brand name is usually not cover therefore would have to prescribe the 2 medications individually. This medication works just as the Wellbutrin; naltrexone aides in further blocking of the reward center to aide in wt loss. After discussion of the above, the patient wishes to proceed with Wellbutrin. Stop levothyroxine once current rx is complete about 10 more days, repeat labs. Cramps are well controlled on pickle juice, okay to continue. Start Wellbutrin XL 150 mg Refer to rollway worker for fatty liver and hyperlipidemia and to help with weight loss. Repeat Lipids due July - December If you have not heard about a gastroenterology appointment, please let me know and I can follow up on this. Repeat labs in 8 weeks and OV to follow, sooner as needed. This note is constructed using voice recognition software. While every effort has been made to ensure accuracy in hazmat technician, still errors may have been included Sometimes, these errors may affect the content or meaning of the given sentence . Total time spent caring for the patient today was 40 minutes. This includes time spent before the visit reviewing the chart, time spent during the visit, and time spent after the visit on documentation [facility] Medical History (Updated 12/28/23 @ 16:46 [facility] Thyroid disease Encounter for Essure implantation HTN (hypertension) Hx of breast cancer Surgical History (Updated 12/09/23 @ 14:56 by Christianne Galaviz MD) H/O lumpectomy Family History (Updated 12/28/23 @ 10:59 by Destiny Calero MA) Father HTN (hypertension) Skin cancer Stroke Substance abuse Mother ALS (amyotrophic lateral sclerosis) Skin cancer Social History (Updated 12/28/23 @ 10:59 by Destiny Calero MA) Household Members: Family Household Members Other:: daughter Housing: House Are you a primary childcare administrator to a significant other at home: Yes Do you presently have visiting nurse or other home services: No 75 years or older and lives alone: No Alcohol intake: current Alcohol intake frequency: holidays/special occasions only Patient Tobacco Use Status: Former Tobacco user Tobacco use type: Cigarette e-Cigarette/Vaping Use: Never Used service: No Current occupational status: employed 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 Sexual orientation: Straight/Heterosexual Gender identity: Female Cognitive needs: No Hearing needs: No Vision needs: Yes (contacts) Questionnaire Thrive Questionnaire Date Thrive assessed: 12/21/23 I am a: Patient What is your living situation today?: I have a steady place to live Within the past 12 months, did the food you bought not last and you didn't have the money to get more?: Never true Within the past 12 months, did you worry whether your food would run out before you got money to buy more?: Never true Do you have trouble paying for medicines?: No Do you have trouble getting transportation to medical appointments?: No Do you have trouble paying your heating and electricity bill?: No Do you have trouble taking care of your child, family member or friend?: No Do you have trouble with day-to-day activities such as bathing, preparing meals, shopping, managing finances, etc.?: No Are you currently unemployed and looking for a job?: No Are you interested in more education?: No Please select the resources that you would like help with: None Currently or been in a relationship where the following occur: No concerns reported THRIVE Score: 0 VALERIO-7 AMB Questionnaire VALERIO-7 Date VALERIO - 7 assessed: 12/28/23 Becoming easily annoyed or irritable: 0 = Not at all Source: Developed by Drs. Octavio Rosario, Jaida Butterfield, Sebastian Zaragoza and colleagues, with an educational elisabeth from [employer]. Physical exam (Primary Care) Vital Signs: Last Vital Signs Temp 99.2 F 01/19/24 13:30 Pulse 101 H 01/19/24 13:30 Resp 16 01/19/24 13:30 BP 110/68 01/19/24 13:30 Pulse Ox 98 01/19/24 13:30 Oxygen Delivery Method Room Air 01/19/24 13:30 BMI result Body Mass Index 41.0 BMI Assessment/Plan discussion: High BMI High, discussed plan: weight reduction Tobacco/Smoking Status: Tobacco use Status Tobacco use date assessed 01/19/24 01/19/24 13:34 Patient Tobacco Use Status Former Tobacco user 01/19/24 13:27 Tobacco use type Cigarette 01/19/24 13:27 e-Cigarette/Vaping Use Never Used 01/19/24 13:27 Thrive Assessment: Date of Thrive Assessment Date Thrive assessed 12/21/23 01/19/24 13:27 Currently or been in a relationship where the following occur: No concerns reported Office Procedures Office Procedure Misc Details: G0449 15 MINUTE OBESITY EDUCATION Office Procedure Billing Code: AMB Procedure Billing Code (G0449 15 MINUTE OBESITY EDUCATION) Coding Level of Care Code Est Pt Level 5 (69901) Complex EM visit Add On G2211 Diagnoses Body mass index (BMI) of 40.1 to 44.9 in adult Z68.41 Class 3 obesity E66.813 Moderate mixed hyperlipidemia not requiring statin therapy E78.2 Hyperlipidemia type: moderate mixed hyperlipidemia not requiring statin therapy Fatty liver K76.0 Primary hypertension I10 Hypertension type: primary hypertension Muscle cramps R25.2 Prediabetes R73.03 Acquired hypothyroidism E03.9 Hypothyroidism type: acquired CPT Codes Office Procedure - Office Procedure Billing Code: AMB Procedure Billing Code ([id number]) Assessment & Plan Assessment & Plan (1) Body mass index (BMI) of 40.1 to 44.9 in adult: Code(s): Z68.41 - Body mass index [BMI] 40.0-44.9, adult Category: Medical Plan: . (2) Class 3 obesity: Code(s): E66.813 - Obesity, class 3 Category: Medical Plan: . (3) Hyperlipidemia: Code(s): E78.5 - Hyperlipidemia, unspecified Category: Medical Qualifiers: Hyperlipidemia type: moderate mixed hyperlipidemia not requiring statin therapy Qualified Code(s): E78.2 - Mixed hyperlipidemia Plan: . (4) Fatty liver: Code(s): K76.0 - Fatty (change of) liver, not elsewhere classified Category: Medical Plan: . (5) HTN (hypertension): Code(s): I10 - Essential (primary) hypertension Category: Medical Qualifiers: Hypertension type: primary hypertension Qualified Code(s): I10 - Essential (primary) hypertension Plan: . (6) Muscle cramps: Code(s): R25.2 - Cramp and spasm Category: Medical (7) Prediabetes: Code(s): R73.03 - Prediabetes Category: Medical (8) Hypothyroidism: Code(s): E03.9 - Hypothyroidism, unspecified Category: Medical Qualifiers: Hypothyroidism type: acquired Qualified Code(s): E03.9 - Hypothyroidism, unspecified Plan . Orders: Orders Comprehensive Met. Panel 03/08/24 I10 - Essential (primary) hypertension, K76.0 - Fatty (change of) liver, not elsewhere classified TSH reflex Free T4 03/08/24 I10 - Essential (primary) hypertension, K76.0 - Fatty (change of) liver, not elsewhere classified Referrals Grey Inspector Nutrition Referral E66.813 - Obesity, class 3, E78.2 - Mixed hyperlipidemia, K76.0 - Fatty (change of) liver, not elsewhere classified, Z68.41 - Body mass index [BMI] 40.0-44.9, adult Medications: New amlodipine 10 mg PO DAILY 90 tabs 2RF bupropion HCl XL (Wellbutrin XL) 150 mg PO QAM 30 tabs 2RF
[2024-01-19 13:30] VITALS: BP 110/68; PULSE 101; RESP 16; TEMP 37.3; O2SAT 98; BMI 41.0
[2024-01-19 15:45] VITALS: PULSE 90
== END 2024-01-19 14:16 | disposition home or self-care (01) ==
PROVIDERS: PCP Nurse Practitioner Family; Visit Provider Nurse Practitioner Family
DX: E78.2 Mixed hyperlipidemia (principal); Z68.41 Body mass index [BMI] 40.0-44.9, adult; E66.813 Obesity, class 3; K76.0 Fatty (change of) liver, not elsewhere classified; I10 Essential (primary) hypertension; R25.2 Cramp and spasm; R73.03 Prediabetes; E03.9 Hypothyroidism, unspecified

== ENCOUNTER → 2024-01-19 13:25 | Outpatient (BNVA) | payer OTHER, SELFPAY | PROVIDERS: PCP Nurse Practitioner Family; Visit Provider Nurse Practitioner Family | DX: E66.813 Obesity, class 3 (principal); Z68.41 Body mass index [BMI] 40.0-44.9, adult; E78.2 Mixed hyperlipidemia; K76.0 Fatty (change of) liver, not elsewhere classified; I10 Essential (primary) hypertension; R25.2 Cramp and spasm; R73.03 Prediabetes; E03.9 Hypothyroidism, unspecified | CPT/HCPCS: 99212 ==

== ENCOUNTER 2024-02-28 09:35 | Outpatient (REF) | payer OTHER, SELFPAY ==
--- OUTSIDE RECORDS SUMMARY | 2024-02-28 09:42 | XMS_ITS | Continuity of Care Document ---
Author Organization [facility] Primary [facility] [place] Address [address] [place] [address]- Care Team Providers Care Rack Pusher Name Role Phone Michell Reynoso NP Primary Care Physician ( [phone] Encounter [facility] NBR [id number] Date(s): 01/24/24 - 02/23/[address] [id number] Encounter Type: Triage Allergies, Adverse Reactions, Alerts Substance Criticality Severity Reaction Reaction Severity Status lisinopril 1 Active 1Cough Immunizations Given and Recorded Vaccine Date Status Refusal Reason influenza virus vaccine, inactivated 01/21/22 Rick rded influenza virus vaccine, inactivated 1 11/17/19 Re corded influenza virus vaccine, inactivated 12/16/17 Rick rded influenza virus vaccine, inactivated 11/26/16 Rick rded influenza virus vaccine, inactivated 12/03/15 Rick rded influenza virus vaccine, inactivated 12/11/14 Rick rded influenza virus vaccine, inactivated 11/06/09 Rick rded pneumococcal 23-valent vaccine 07/22/21 Given SARS-CoV-2 (COVID-19) mRNA BNT-162b2 vac 01/24/21 Recorded SARS-CoV-2 (COVID-19) mRNA BNT-162b2 vac 06/16/20 Recorded SARS-CoV-2 (COVID-19) mRNA BNT-162b2 vac 05/26/20 Recorded Influenza Virus Vaccine (oldterm) 12/08/20 Recorde d Zoster Vaccine Live 2 05/01/20 Recorded zoster vaccine, inactivated 01/19/20 Recorded 1Result Comment: [facility] 2Result Comment: GIVEN AT PHARM Medications amLODIPine 10 mg oral tablet 1 tablet, By Mouth, Daily, # 90 tablet, 1 Refills, Maintenance, 10/26/23 8:16:00 AM EDT, [id number], 160, cm, 10/07/23 14:39:00 EDT, Height, 106.2, kg, 10/07/23 10:26:00 EDT, Dry Weight Start Date: 10/26/23 Status: Ordered Quantity: 90.0 Unit: tablet Repeat number: 1 betamethasone-clotrimazole 0.05%-1% topical cream 1 application, Topically, 2 times a day, # 45 Gm, 1 Refills, Maintenance, 10/27/21 3:11:00 PM EDT, Cream, [facility]/pharmacy #[id number], Partial fill upon patient request if the prescription is for a schedule IIopioid drug., 1 application Topically 2 times a day, 160, cm, 10/27/21 14:42:00 EDT, Height, 97.8, kg, 10/27/21 14:42:00 EDT, Dry Weight Start Date: 10/27/21 Status: Ordered Quantity: 45.0 Unit: g Repeat number: 2 CeleBREX 200 mg oral capsule 1 capsule = 200 mg, By Mouth, 2 times a day, 0 Refills, Maintenance, 10/06/23 6:24:00 PM EDT, Capsule, Partial fill upon patient request if the prescription is for a schedule II opioid drug. Start Date: 10/06/23 Status: Ordered Repeat number: 1 Flonase 50 mcg/inh nasal spray 1 sprays, Nares, Both, 2 times a day, # 16 Gm, 4 Refills, Maintenance, 08/11/18 1:46:00 PM EDT, [place], [facility]/pharmacy #[id number], 1 sprays Nares, Both 2 times a day,x30 days Start Date: 08/11/18 Stop Date: 01/08/19 Status: Ordered Quantity: 16.0 Unit: g Repeat number: 5 levothyroxine 0.05 mg oral tablet 1 tablet, By Mouth, Daily, # 90 tablet, 1 Refills, Maintenance, 05/13/23 8:20:00 AM EST, [id number], 160, cm, 04/29/23 13:33:00 EST, Height, 100.7, kg, 04/29/23 13:33:00 EST, Dry Weight Start Date: 05/13/23 Status: Ordered Quantity: 90.0 Unit: tablet Repeat number: 1 olmesartan 20 mg oral tablet 1.5 tablet, By Mouth, Daily, X90 DAYS., # 135 tablet, 1 Refills, Maintenance, 12/09/23 3:51:00 PM EDT, [facility]/pharmacy #[id number], 160, cm, 10/07/23 14:39:00 EDT, Height, 106.2, kg, 10/07/23 10:26:00 EDT, DryWeight Start Date: 12/09/23 Status: Ordered Quantity: 135.0 Unit: tablet Repeat number: 2 olmesartan 20 mg oral tablet 1.5 tablet, By Mouth, Daily, X90 DAYS., # 135 tablet, 1 Refills, Maintenance, 02/17/23 4:12:00 PM EST, [facility]/pharmacy #[id number], 160, cm, 12/10/22 15:03:00 EDT, Height, 102, kg, 10/29/22 14:45:00 EDT, Dry Weight Start Date: 02/17/23 Status: Ordered Quantity: 135.0 Unit: tablet Repeat number: 2 ProAir HFA 90 mcg/inh inhalation aerosol with adapter 2, puffs, Inhalation, Every 4 hours, PRN, # 1 each, Refills 3, Tot. Refills 3, Maintenance, 09/06/18 1:03:00 PM EDT, Aerosol, Route to Pharmacy Electronically, [id number], [facility]/pharmacy #[id number] Start Date: 09/06/18 Status: Ordered Quantity: 1.0 Unit: each Repeat number: 4 Problem List Condition Confirmation Course Effective Dates Status H ealth Status Informant History of abnormal cervical Pap smear Confirmed Active History of right breast cancer Confirmed Active Hypertension Confirmed Active Hypocalcemia Confirmed Active Hypothyroidism Confirmed Active Breast cancer of lower-outer quadrant of right female breast Confirmed Active Menopause Confirmed Active Class 1 obesity in adult Confirmed Active Prediabetes Confirmed Active Severe obesity (BMI 35.0-39.9) with comorbidity Confirmed Active Fatty liver Confirmed Active Tubular adenoma of colon 1 Confirmed 10/19/18 Active 1repeat screening colonoscopy in 2023 Social History Social History Type Response Smoking Status Former smoker; Type: Cigarettes; Tobacco use times per day: 1/2 PPD; Started at age: 18; Stopped at age: 29; entered on: 07/06/17 Sex Female Sex Representation Female (finding) Patient Care team information Care Team Personnel Name: Olive Scott Position: [facility] Onco RN Member Role: Primary Care Nurse Name: Kamini Dial MA Position: [facility] Onco RN Member Role: Primary Care Nurse Name: Michell Reynoso NP Position: [facility] PCO Associate Professional Member Role: PCP Address: [address] [place] [address] Telecom: Care Team Related Persons Name: NIGEL BOWER Name: DALILA BOWER Name: ANA LUISA HAYES Name: MIRIAM FUNEZ Insurance Providers Guarantor name: TAVIA BOWER Health Plan Information #: 1 Payer: [employer] Member Number: NA Policy Number: NA Group Number: NA Health Plan Information #: 2 Payer: NA Member Number: NA Policy Number: NA Group Number: NA
[2024-02-28 14:24] LABS: Albumin Level 4.5 g/dL (3.5-5.0); Alkaline Phosphatase 91 U/L (39-117); Anion Gap 11 (12-20); Aspartate Amino Transferase 30 U/L (5-31); Bilirubin Total 0.4 mg/dL (0.0-1.0); Blood Urea Nitrogen 13 mg/dL (9-16); Calcium 9.4 mg/dL (8.4-10.2); Carbon Dioxide 29 mmol/L (22-29); Chloride 102 mmol/L (96-108); Estimated Glomerular Filt Rate 54; Glucose Random 99 mg/dL (60-115); Potassium 3.9 mmol/L (3.3-5.1); Sodium 138 mmol/L (135-145); Total Protein 7.9 g/dL (6.5-8.0)
[2024-02-28 14:50] LABS: Alanine Aminotransferase 38 U/L (0-31); TSH reflex Free T4 4.77 uIU/mL (0.32-4.0)
[2024-02-28 23:47] LABS: Free T4 (Free Thyroxine) 0.83 ng/dL (0.71-1.85)
== END 2024-02-28 09:36 | disposition home or self-care (01) ==
LOC: HO.HMGCLDS 09:35
PROVIDERS: PCP Nurse Practitioner Family; Visit Provider Nurse Practitioner Family
DX: K76.0 Fatty (change of) liver, not elsewhere classified (principal); I10 Essential (primary) hypertension
CPT/HCPCS: 36415; 80053; 84439; 84443

== ENCOUNTER 2024-03-15 13:28 | Outpatient (REF) | payer OTHER, SELFPAY ==
--- NOTE | ~2024-03-15 | XR_ITS ---
CLINICAL HISTORY: M25.551 - Pain in right hip 2 view left hip Comparison: None Findings: The bones are intact. No significant arthritic change. The soft tissues are unremarkable. IMPRESSION: No acute findings. This document has been electronically signed by: Laura Santana MD on 03/15/2024 16:49:57
== END 2024-03-15 13:29 | disposition home or self-care (01) ==
LOC: HO.HMGCX 13:28
PROVIDERS: PCP Nurse Practitioner Family; Visit Provider Nurse Practitioner Family
DX: E66.01 Morbid (severe) obesity due to excess calories (principal); Z68.39 Body mass index [BMI] 39.0-39.9, adult; I10 Essential (primary) hypertension; K76.0 Fatty (change of) liver, not elsewhere classified; R25.2 Cramp and spasm; R73.03 Prediabetes; M25.551 Pain in right hip; M25.552 Pain in left hip; C50.911 Malignant neoplasm of unspecified site of right female breast; E03.8 Other specified hypothyroidism; D36.9 Benign neoplasm, unspecified site; M89.8X8 Other specified disorders of bone, other site; E78.2 Mixed hyperlipidemia
CPT/HCPCS: 73522; 96127; 99212

== ENCOUNTER 2024-03-15 13:28 | Outpatient (AMB) | payer OTHER, SELFPAY ==
--- NOTE | 2024-03-15 13:30 | A.OFFPC_ITS ---
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: No Allergies No Known Allergies Allergy (Verified 03/15/24 13:42) Medication List - Last Reconciled 03/15/24 by VENU Irving- amlodipine 10 mg PO DAILY bupropion HCl XL (Wellbutrin XL) 150 mg PO QAM olmesartan 30 mg PO DAILY Tobacco use date assessed: 03/15/24 Dental Screening Dental Screen Date: 03/15/24 Did you have a dental visit in the last 12 months?: Yes Did you have a dental problem in the last 6 months where you did not have access to dental care?: No Was dental information given to patient?: Patient has dentist HPI HPI Comments History of Present Illness Details 58 y/o with right breast cancer lower ou ter quadrant Stage 1: pT1c, pN0 ER and HI positive, HER2 Desmond negative s/p excision followed by radiation therapy, HTN, hypothyroid, IFG, obesity, tubular adenoma, L frozen shoulder, hyperlipidemia, fatty liver s/p Excisional biopsy of the breast/radioactive seed 12/22/2017, hysteroscopy D&C 2023 FAMILY HISTORY: Mom had ALS. Maternal grandma had breast cancer at the age of 68. Both mom and dad had skin cancer. Dad of heart attack. Mom had osteoporosis. 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 She is . Has 3 children. He smoked a pack a day quit 28 years ago. She drinks socially. Health Maintenance Pap 10/13/23 WNL Colon 10/17/2018 [facility] tubular adenoma, repeat 2023 referred to [facility] [place] first appt in May 2024 Mammo 12/11/23 [facility] - need report DEXA 12/30/23 WNL Tdap Flu done 2023 [facility] [employer] Heme q 6 mo GI Ortho podiatry appt tomorrow Here today for routine follow up. Since last office visit she is maintained on Wellbutrin XL 150 mg daily which she is utilizing to help her lose weight. She also continues to exercise and use new. She has lost additional 10 lb since I saw her. She did experience some constipation initially when starting the Wellbutrin but this has resolved. She was referred to a dietitian and needs to reschedule this as she was sick during the initial appointment. She is using pickle juice to help with her leg cramps. She was scheduled with GI for her colonoscopy consult. She remains off of her levothyroxine. She did have a repeat labs done. Results as below. She has new complaint of bilat hip pain that started a couple of weeks ago without any known injury. She initially replaced her mattress what seemed to help however she continues with pain. She does need to take an Aleve daily to be comfortable. Findings on days that she does not take the leave she has worsening pain. This is associated with some sciatic like symptoms in her right lower leg. She denies any red flags of back pain. Repeat labs from 02/28/2024 show normal electrolytes, BUN 13, creatinine 1.05, EGFR 54 this is about the same as the last draw in December, random glucose is 99, normal calcium, improved AST now normal at 30, ALT remains the same at 38, TSH is now 4.77 with T4 0.83, in December her TSH was 2.24 Exam: Awake alert NAD Thyroid nontender RRR LS CTAB No edema in BLE Full range of motion of bilateral hips. She has pain over bilat iliac crest with gentle palpation. She also has pain over her left bursa with palpation. She is neurovascularly intact. Mood and affect appropriate Plan X-rays of the hip and pelvis performed. Within normal limits. Educated patient to stop excessive use of NSAIDs that this could be contributing to her renal function. There wi also a GI risk. We will prescribe Celebrex advised to take sparingly and as needed with food. Also advised to go ahead and use topical Voltaren or lidocaine to the affected joints. If the pain continues or worsens we can consider additional imaging or referral to Orthopedics for further management. In regards to the weight loss she has been quite successful with the Wellbutrin. We will continue her on the same dose and only titrate up if she plateaus. Her TSH is mildly elevated at 4.77 however with normal T4 and normal thyroid antibodies. We will continue to monitor. I would like to see her back for routine follow up in 3 months, sooner as needed. This note is constructed using voice recognition software. While every effort has been made to ensure accuracy in software support specialist, still errors may have been included Sometimes, these errors may affect the content or meaning of the given sentence . Total time spent caring for the patient today was 40 minutes. This includes time spent before the visit reviewing the chart, time spent during the visit, and time spent after the visit on documentation COUNTS INCLUDE 234 BEDS AT THE [facility] Medical History (Updated 03/15/24 @ 18:12 by Noemi Blackman [facility]) Thyroid disease Encounter for Essure implantation HTN (hypertension) Hx of breast cancer Surgical History (Updated 12/09/23 @ 14:56 by Christianne Galaviz MD) H/O lumpectomy Family History (Updated 12/28/23 @ 10:59 by Destiny Calero MA) Father HTN (hypertension) Skin cancer Stroke Substance abuse Mother ALS (amyotrophic lateral sclerosis) Skin cancer Social History (Updated 12/28/23 @ 10:59 by Destiny Calero MA) Household Members: Family Household Members Other:: daughter Housing: House Are you a primary primary care coordinator to a significant other at home: Yes Do you presently have visiting nurse or other home services: No 75 years or older and lives alone: No Alcohol intake: current Alcohol intake frequency: holidays/special occasions only Patient Tobacco Use Status: Former Tobacco user Tobacco use type: Cigarette e-Cigarette/Vaping Use: Never Used service: No Current occupational status: employed 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 Sexual orientation: Straight/Heterosexual Gender identity: Female Cognitive needs: No Hearing needs: No Vision needs: Yes (contacts) Questionnaire PHQ-9 Over the last 2 weeks, how often have you been bothered by any of the following problems? 1. Little interest or pleasure in doing things: not at all 2. Feeling down, depressed, or hopeless: not at all 3. Trouble falling or staying asleep, or sleeping too much: several days 4. Feeling tired or having little energy: several days 5. Poor appetite or overeating: not at all 6. Feeling bad about yourself - or that you are a failure or have let yourself or your family down: not at all 7. Trouble concentrating on things, such as reading the newspaper or watching television: not at all 8. Moving or speaking so slowly that other people could have noticed. Or the opposite - being so fidgety or restless that you have been moving around a lot more than usual: not at all 9. Thoughts that you would be better off or of hurting yourself in some way: not at all Total score: 2 Depression Screening Interpretation: Negative Depression Screening Done: Yes 01327 - PHQ-9 Billing: Yes Source: Developed by Drs. Octavio Rosario, Jaida Butterfield, Sebastian Zaragoza and colleagues, with an educational elisabeth from [employer]. Thrive Questionnaire Date Thrive assessed: 03/15/24 I am a: Patient What is your living situation today?: I have a steady place to live Within the past 12 months, did the food you bought not last and you didn't have the money to get more?: Never true Within the past 12 months, did you worry whether your food would run out before you got money to buy more?: Never true Do you have trouble paying for medicines?: No Do you have trouble getting transportation to medical appointments?: No Do you have trouble paying your heating and electricity bill?: No Do you have trouble taking care of your child, family member or friend?: No Do you have trouble with day-to-day activities such as bathing, preparing meals, shopping, managing finances, etc.?: No Are you currently unemployed and looking for a job?: No Are you interested in more education?: No Please select the resources that you would like help with: None Currently or been in a relationship where the following occur: No concerns reported THRIVE Score: 0 AUDIT C Alcohol Use Questionnaire (AUDIT-C) 1. How often do you have a drink containing alcohol?: 2-4 times a month 2. How many drinks containing alcohol do you have on a typical day when you are drinking?: 3 or 4 3. How often do you have six or more drinks on one occasion?: Never Total Score: 3 Score Reviewed/Action Taken: Yes VALERIO-7 AMB Questionnaire VALERIO-7 Date VALERIO - 7 assessed: 03/15/24 Feeling nervous, anxious, or on edge: 0 = Not at all Not being able to stop or control worryin = Not at all Worrying too much about different things: 0 = Not at all Trouble relaxin = Not at all Being so restless that it is hard to sit still: 0 = Not at all Becoming easily annoyed or irritable: 0 = Not at all Feeling afraid as if something awful might happen: 0 = Not at all Total VALERIO-7 score (0-4 normal; 5-9 mild; 10-14 moderate; 15-21 severe): 0 Source: Developed by Drs. Octavio Rosario, Jaida Butterfield, Sebastian Zaragoza and colleagues, with an educational elisabeth from [employer]. VALERIO-7 Assessment Billing VALERIO-7 Assessment Tool: VALERIO-7 Assessment 05799 Physical exam (Primary Care) Vital Signs: Last Vital Signs Pulse 99 03/15/24 13:37 Resp 12 03/15/24 13:37 BP 118/64 03/15/24 13:37 Pulse Ox 98 03/15/24 13:37 Oxygen Delivery Method Room Air 03/15/24 13:37 BMI result Body Mass Index 39.1 BMI Assessment/Plan discussion: High BMI High, discussed plan: lifestyle and dietary Tobacco/Smoking Status: Tobacco use Status Tobacco use date assessed 03/15/24 03/15/24 13:32 Patient Tobacco Use Status Former Tobacco user 03/15/24 13:32 Tobacco use type Cigarette 03/15/24 13:32 e-Cigarette/Vaping Use Never Used 03/15/24 13:32 PHQ-9: PHQ-9 Score PHQ-9: Total score 2 03/15/24 13:48 Depression Screening Interpretation: Negative Thrive Assessment: Date of Thrive Assessment Date Thrive assessed 03/15/24 03/15/24 13:32 Currently or been in a relationship where the following occur: No concerns reported Results Reviewed Results Reviewed: [facility] Adult Primary Care [facility] [place] [address] XRay Report Signed with Adam Patient: Kaykay Lopez MR#: [id number] : 1965 Acct:[id number] Age/Sex: 58 / F ADM Date: 03/15/24 Loc: HO.[facility]GCX Attending Dr: Noemi SANABRIA Ordering Physician: Noemi Blackman Date of Service: 03/15/24 Procedure(s): XR hip SANTIAGO min 3V w/wo pel Accession Number(s): [id number] cc: ChenteRicardoArdenNoemi sen CLIENT APPLICATION SUPPORT ENGINEER-BC~ ADDENDUMThis document has been electronically signed by: Laura Santana MD on 03/15/2024 16:49:57 ADDENDUM: Addendum: Additional images have been submitted for review, including an AP view of the pelvis and two views of the right hip. There is no fracture or dislocation. There are no significant arthritic changes of the hips. Bilateral fallopian tube coils are incidentally noted. This document has been electronically signed by: Laura Santana MD on 03/15/2024 17:53:50 Addendum Dictated By: Laura Santana MD Addendum Signed By: <Electronically signed by Laura Santana MD in [place]> 03/15/241753 Addendum Cosigned By: DD/ /30/1648 TD/TT: 03/15/2410/30/1752 CLINICAL HISTORY: M25.551 - Pain in right hip 2 view left hip Comparison: None Findings: The bones are intact. No significant arthritic change. The soft tissues are unremarkable. IMPRESSION: No acute findings. This document has been electronically signed by: Laura Santana MD on 03/15/2024 16:49:57 Dictated By: Laura Santana MD Signed By: <Electronically signed by Laura Santana MD in OV> 03/15/24 1651 Coding Level of Care Code Est Pt Level 5 (21394) Complex EM visit Add On G2211 Diagnoses BMI 39.0-39.9,adult Z68.39 Severe obesity (BMI 35.0-39.9) with comorbidity E66.01 Primary hypertension I10 Hypertension type: primary hypertension Fatty liver K76.0 Muscle cramps R25.2 Prediabetes R73.03 Bilateral hip pain M25.551; M25.552 Malignant neoplasm of right female breast, unspecified estrogen receptor status, unspecified site of breast C50.911 Breast location: unspecified site of breast Estrogen receptor status: unspecified Patient sex: female Subclinical hypothyroidism E03.8 Tubular adenoma D36.9 Iliac crest bone pain M89.8X8 Moderate mixed hyperlipidemia not requiring statin therapy E78.2 Hyperlipidemia type: moderate mixed hyperlipidemia not requiring statin therapy Additional Codes VALERIO-7 Assessment Billing - VALERIO-7 Assessment Tool: VALERIO-7 Assessment 28030 ([id number]) PHQ-9 - 16887 - PHQ-9 Billing: Yes ([id number]) Assessment & Plan Assessment & Plan (1) BMI 39.0-39.9,adult: Code(s): Z68.39 - Body mass index [BMI] 39.0-39.9, adult Category: Medical (2) Severe obesity (BMI 35.0-39.9) with comorbidity: Code(s): E66.01 - Morbid (severe) obesity due to excess calories Category: Medical (3) HTN (hypertension): Code(s): I10 - Essential (primary) hypertension Category: Medical Qualifiers: Hypertension type: primary hypertension Qualified Code(s): I10 - Essential (primary) hypertension (4) Fatty liver: Code(s): K76.0 - Fatty (change of) liver, not elsewhere classified Category: Medical (5) Muscle cramps: Code(s): R25.2 - Cramp and spasm Category: Medical (6) Prediabetes: Code(s): R73.03 - Prediabetes Category: Medical (7) Bilateral hip pain: Code(s): M25.551 - Pain in right hip; M25.552 - Pain in left hip Category: Medical (8) Malignant neoplasm of right breast: Code(s): C50.911 - Malignant neoplasm of unspecified site of right female breast Category: Medical Qualifiers: Breast location: unspecified site of breast Estrogen receptor status: unspecified Patient sex: female Qualified Code(s): C50.911 - Malignant neoplasm of unspecified site of right female breast (9) Subclinical hypothyroidism: Code(s): E03.8 - Other specified hypothyroidism Category: Medical (10) Tubular adenoma: Comment: of colon, repeat due 2023 Code(s): D36.9 - Benign neoplasm, unspecified site Category: Medical (11) Iliac crest bone pain: Code(s): M89.8X8 - Other specified disorders of bone, other site Category: Medical (12) Hyperlipidemia: Code(s): E78.5 - Hyperlipidemia, unspecified Category: Medical Qualifiers: Hyperlipidemia type: moderate mixed hyperlipidemia not requiring statin therapy Qualified Code(s): E78.2 - Mixed hyperlipidemia Plan . Orders: Orders XR hip SANTIAGO min 3V w/wo pel Today C50.911 - Malignant neoplasm of unspecified site of right female breast, M25.551 - Pain in right hip, M25.552 - Pain in left hip, M89.8X8 - Other specified disorders of bone, other site Medications: New celecoxib (Celebrex) 1-2 tabs twice per day, use sparingly, as needed for pain. 50 mg PO BID PRN 120 caps 0RF pain Refilled bupropion HCl XL (Wellbutrin XL) 150 mg PO QAM 30 tabs 2RF Patient Instructions: Voltaren gel over the counter can try otc lidocaine patch or cream as well
[2024-03-15 13:37] VITALS: BP 118/64; PULSE 99; RESP 12; O2SAT 98; BMI 39.1
== END 2024-03-15 14:09 | disposition home or self-care (01) ==
PROVIDERS: PCP Nurse Practitioner Family; Visit Provider Nurse Practitioner Family
DX: I10 Essential (primary) hypertension (principal); Z68.39 Body mass index [BMI] 39.0-39.9, adult; C50.911 Malignant neoplasm of unspecified site of right female breast; E66.01 Morbid (severe) obesity due to excess calories; K76.0 Fatty (change of) liver, not elsewhere classified; R25.2 Cramp and spasm; R73.03 Prediabetes; M25.551 Pain in right hip; M25.552 Pain in left hip; E03.8 Other specified hypothyroidism; D36.9 Benign neoplasm, unspecified site; M89.8X8 Other specified disorders of bone, other site

== ENCOUNTER → 2024-03-15 15:05 | Outpatient (BNV) | payer OTHER, SELFPAY | PROVIDERS: PCP Nurse Practitioner Family; Visit Provider Radiology Diagnostic Radiology | DX: M25.551 Pain in right hip (principal) | CPT/HCPCS: 73522 ==

== ENCOUNTER 2024-06-14 13:21 | Outpatient (AMB) | payer OTHER, SELFPAY ==
--- NOTE | 2024-06-14 13:37 | A.OFFPC_ITS ---
Vital Signs 06/14/24 13:42 Height 5 ft 3 in Weight 205 lb 6 oz BMI 36.4 BP 114/68 Blood Pressure Location Lt brachial Position Sitting Respiration 12 Pulse 87 Pulse Source Pulse Oximeter Temp 97.8 F Temp Source Oral Pulse Oximetry (%) 97 Oxygen Delivery Method Room Air Intake Visit Reasons: 3 month 30 min routine complex fu Intake Note: Routine follow up Livestock Brands Inspector Required: No Allergies No Known Allergies Allergy (Verified 06/14/24 13:48) Medication List - Last Reconciled 06/14/24 by Noemi Blackman, PSYCHOLOGICAL SCIENCE PROFESSOR- amlodipine 10 mg PO DAILY bupropion HCl XL (Wellbutrin XL) 150 mg PO QAM celecoxib (Celebrex) 50 mg PO BID PRN olmesartan 30 mg PO DAILY Tobacco use date assessed: 06/14/24 Dental Screening Dental Screen Date: 06/14/24 Did you have a dental visit in the last 12 months?: Yes Did you have a dental problem in the last 6 months where you did not have access to dental care?: No Was dental information given to patient?: Patient has dentist HPI HPI Comments History of Present Illness Details 58 y/o with right breast cancer lower ou ter quadrant Stage 1: pT1c, pN0 ER and SC positive, HER2 [place] negative s/p excision followed by radiation therapy, HTN, hypothyroid, IFG, obesity, tubular adenoma s/p Excisional biopsy of the breast/radioactive seed 12/22/2017, hysteroscopy D&C 2023 FAMILY HISTORY: Mom had ALS. Maternal grandma had breast cancer at the age of 68. Both mom and dad had skin cancer. Dad of heart attack. Mom had osteoporosis. 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 She is . Has 3 children. He smoked a pack a day quit 28 years ago. She drinks socially. Health Maintenance Pap 10/13/23 WNL Colon 10/17/2018 [facility] tubular adenoma, repeat 2023 referred to [facility] next appt August 2024 Mammo 12/11/23 [facility] - need report DEXA 12/2023 [facility] Heme q 6 mo GI Here today for routine fu HTN controlled on current meds Heme consult 06/2024. Note reviewed. Advised to take Ca+D. I Obesity - cont wt loss though has slowed ; cont in nutrition program and wellbutrin. Mood is good Using celebrex BID for hip pain which is still there but better since wt loss cont to hydrate poorly. egfr down again. L shoulder is good. Mild anemia noted on labs. Due for repeat chol, tsh. Exam: Awake alert NAD Thyroid nontender RRR LS CTAB No edema in BLE Full range of motion of bilateral hips. She is neurovascularly intact. Mood and affect appropriate Plan Start Viactiv chew Check labs Increase wellbutrin to 300mg for wt loss Hyrdate well Limit nephrotoxic meds If eGFR cont to decrease, will need to consult Renal RTO 4-6 months for CPE Sooner PRN Total time spent caring for the patient today was 41 minutes. This includes time spent before the visit reviewing the chart, time spent during the visit, and time spent after the visit on documentation, reviewing laboratory results, diagnostic imaging, medications, performing a medically necessary evaluation, counseling on diagnoses, care coordination, ordering appropriate tests, ordering appropriate medications, review of tests performed by other providers, reporting test results with the patient, communication with other healthcare providers. [facility] Medical History (Updated 06/14/24 @ 18:19 by Noemi Blackman [facility]) Encounter for Essure implantation HTN (hypertension) Hx of breast cancer Thyroid disease Surgical History (Updated 06/14/24 @ 08:01 by VENU IrvingDEVON) H/O lumpectomy History of colonoscopy (~2019) Family History Father HTN (hypertension) Skin cancer Stroke Substance abuse Mother ALS (amyotrophic lateral sclerosis) Skin cancer Social History Household Members: Family Household Members Other:: daughter Housing: House Are you a primary healthcare business analyst to a significant other at home: Yes Do you presently have visiting nurse or other home services: No 75 years or older and lives alone: No Alcohol intake: current Alcohol intake frequency: holidays/special occasions only Patient Tobacco Use Status: Former Tobacco user Tobacco use type: Cigarette e-Cigarette/Vaping Use: Never Used service: No Current occupational status: employed 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 Sexual orientation: Straight/Heterosexual Gender identity: Female Cognitive needs: No Hearing needs: No Vision needs: Yes (contacts) Questionnaire Thrive Questionnaire Date Thrive assessed: 03/08/24 I am a: Patient What is your living situation today?: I have a steady place to live Within the past 12 months, did the food you bought not last and you didn't have the money to get more?: Never true Within the past 12 months, did you worry whether your food would run out before you got money to buy more?: Never true Do you have trouble paying for medicines?: No Do you have trouble getting transportation to medical appointments?: No Do you have trouble paying your heating and electricity bill?: No Do you have trouble taking care of your child, family member or friend?: No Do you have trouble with day-to-day activities such as bathing, preparing meals, shopping, managing finances, etc.?: No Are you currently unemployed and looking for a job?: No Are you interested in more education?: No Please select the resources that you would like help with: None Currently or been in a relationship where the following occur: No concerns reported THRIVE Score: 0 VALERIO-7 AMB Questionnaire VALERIO-7 Date VALERIO - 7 assessed: 03/15/24 Source: Developed by Drs. Octavio Rosario, Jaida Butterfield, Sebastian Zaragoza and colleagues, with an educational elisabeth from [employer]. Physical exam (Primary Care) Vital Signs: Last Vital Signs Temp 97.8 F 06/14/24 13:42 Pulse 87 06/14/24 13:42 Resp 12 06/14/24 13:42 BP 114/68 06/14/24 13:42 Pulse Ox 97 06/14/24 13:42 Oxygen Delivery Method Room Air 06/14/24 13:42 BMI result Body Mass Index 36.4 Tobacco/Smoking Status: Tobacco use Status Tobacco use date assessed 06/14/24 06/14/24 13:43 Patient Tobacco Use Status Former Tobacco user 06/14/24 13:38 Tobacco use type Cigarette 06/14/24 13:38 e-Cigarette/Vaping Use Never Used 06/14/24 13:38 Thrive Assessment: Date of Thrive Assessment Date Thrive assessed 03/08/24 06/14/24 13:38 Currently or been in a relationship where the following occur: No concerns reported Results Reviewed Results Reviewed: RUN: 06/14/24 1814 PAGE 1 [facility] [address] [place] [id number] Switching Clerk: Scotty Raymond M.D. Specimen Inquiry Name: Kaykay Lopez Age/Sex: 58/F : 1965 Unit#: [id number] Attend Dr: Christianne Galaviz MD Re06/07/24 Status: REG [facility] Location: [facility] Disch: SPEC : [id number] KIA: 06/07/24 STATUS: COMP REQ : [id number] RECD: 06/07/[address]: Christianne Galaviz MD COMP: 06/07/24 ENTERED: 06/07/24 [facility] DR: Noemi Blackman [facility] ORDERED: CBC Auto Diff Test Result Flag Reference WBC 8.1 4.8-10.8 X10*3/uL RBC 4.06 L 4.20-5.50 X1 0*6/uL HGB 12.4 12.0-16.0 g/dl HCT 36.5 L 37.0-47.0 % MCV 89.9 80.0-98.0 fL MCH 30.5 27.0-33.0 pg MCHC 34.0 31.0-35.0 g/dl RDW 12.6 11.0-16.0 % PLT 257 160-400 X10*3/uL MPV 10.9 9.4-12.3 fL Neut Pct Auto 66.8 45-73 % ImGran Pct Auto 0.2 0.0-0.4 % Lymp Pct Auto 23.9 20-40 % Pacific Pct Auto 6.3 2-11 % Eos Pct Auto 2.2 0-4 % Baso Pct Auto 0.6 0-2 % NRBC Pct Auto 0.0 0.0-0.2 /100WBC ANC Neut Abs # 5.4 2.0-8.3 x10*3/uL ImGran Abs Auto 0.02 0.00-0.03 X10*3/uL Lymph Abs Auto 1.9 1.2-4.9 X10*3/uL Pacific Abs Auto 0.5 0.1-1.2 X10*3/uL Eos Abs Auto 0.2 0.0-0.4 X10*3/uL Baso Abs Auto 0.1 0.0-0.2 X10*3/uL NRBC Abs Auto 0.000 0.0-0.012 X10*3/uL RUN: 06/14/24 1814 PAGE 1 [facility] [address] [place] [phone] Switching Clerk: Scotty Raymond M.D. Specimen Inquiry Name: Kaykay Lopez Age/Sex: 58/F : 1965 Unit#: [id number] Attend Dr: Christianne aGlaviz MD Re06/07/24 Status: REG [facility] Location[facility] Disch: SPEC : [id number] KIA: 06/07/24 STATUS: COMP REQ : [id number] RECD: 06/07/[address]: Christianne Galaviz MD COMP: 06/07/24-141 ENTERED: 06/07/24-132 [facility] DR: Noemi Blackman [facility] ORDERED: CMP Test Result Flag Reference Sodium 137 135-145 mmol/L Potassium 4.9 # 3.3-5.1 mmol/L CL 106 96-108 mmol/L CO2 25 22-29 mmol/L Gap 11 L 12-20 BUN 34 H 9-16 mg/dL Creat 1.27 0.5-1.4 mg/dL Estimated CrCl 53.8 Provided height and weight: 160.02 cm, 93.7 kg. eGFR (calculated from the MDRD study equation) and eCrCl (calculated from the Cockcroft-Gault equation) are based on different parameters and may not yield comparable results. If eCrCl result is absurd, please check patient's height/weight. eGFR 44 Chronic Kidney Disease: Estimated GFR < 60 mL/min/1.73m2 Severe Kidney Disease: Estimated GFR < 15 mL/min/1.73m2 Glucose, Random 90 60-115 mg/dL CA 9.7 8.4-10.2 mg/dL Total Bili 0.3 0.0-1.0 mg/dL AST (GOT) 29 5-31 U/L ALT (GPT) 36 H 0-31 U/L Protein, Total 7.7 6.5-8.0 g/dL Alb 4.5 3.5-5.0 g/dL Alk Phos 87 39-117 U/L Coding Level of Care Code Est Pt Level 5 (20637) Complex EM visit Add On G2211 Diagnoses Prediabetes R73.03 Subclinical hypothyroidism E03.8 Bilateral hip pain M25.551; M25.552 Primary hypertension I10 Hypertension type: primary hypertension Moderate mixed hyperlipidemia not requiring statin therapy E78.2 Hyperlipidemia type: moderate mixed hyperlipidemia not requiring statin therapy Severe obesity (BMI 35.0-39.9) with comorbidity E66.01 Decreased GFR R94.4 Assessment & Plan Assessment & Plan (1) Prediabetes: Code(s): R73.03 - Prediabetes Category: Medical (2) Subclinical hypothyroidism: Code(s): E03.8 - Other specified hypothyroidism Category: Medical (3) Bilateral hip pain: Code(s): M25.551 - Pain in right hip; M25.552 - Pain in left hip Category: Medical (4) HTN (hypertension): Code(s): I10 - Essential (primary) hypertension Category: Medical Qualifiers: Hypertension type: primary hypertension Qualified Code(s): I10 - Essential (primary) hypertension (5) Hyperlipidemia: Code(s): E78.5 - Hyperlipidemia, unspecified Category: Medical Qualifiers: Hyperlipidemia type: moderate mixed hyperlipidemia not requiring statin therapy Qualified Code(s): E78.2 - Mixed hyperlipidemia (6) Severe obesity (BMI 35.0-39.9) with comorbidity: Code(s): E66.01 - Morbid (severe) obesity due to excess calories Category: Medical (7) Decreased GFR: Code(s): R94.4 - Abnormal results of kidney function studies Category: Medical Plan . Orders: Orders TSH reflex Free T4 Today E03.8 - Other specified hypothyroidism, R73.03 - Prediabetes Ferritin Today E03.8 - Other specified hypothyroidism, R73.03 - Prediabetes Vitamin B12 and Folate Today E03.8 - Other specified hypothyroidism, R73.03 - Prediabetes IRON PROFILE Today E03.8 - Other specified hypothyroidism, R73.03 - Prediabetes Hemoglobin A1c Today E03.8 - Other specified hypothyroidism, R73.03 - Prediabetes Medications: New bupropion HCl XL (Wellbutrin XL) 300 mg PO QAM 90 tabs 1RF calcium-vitamin D3-vitamin K 650 mg-12.5 mcg-40 mcg (Viactiv) 1 tab PO DAILY 30 tabs 0RF Refilled celecoxib (Celebrex) 1-2 tabs twice per day, use sparingly, as needed for pain. 50 mg PO BID PRN 120 caps 0RF pain Discontinued bupropion HCl XL (Wellbutrin XL) Discontinued Reason: Patient Completed Course 150 mg PO QAM 30 tabs 2RF
[2024-06-14 13:42] VITALS: BP 114/68; PULSE 87; RESP 12; TEMP 36.6; O2SAT 97; BMI 36.4
--- OUTSIDE RECORDS SUMMARY | 2024-06-14 15:47 | XMS_ITS | Clinical Summary ---
Author Organization [address] [facility] Address [address] [place] [address] Phone Care Team Providers Care Statistician Name Role Phone Noemi Blackman Primary Care Provider Allergies No known active allergies Medications levothyroxine (SYNTHROID, LEVOTHROID) 50 mcg tablet TAKE 1 TABLET EVERY DAY Active amLODIPine (NORVASC) 10 mg tablet Take 1 Tablet by mouth daily Active olmesartan medoxomil (OLMESARTAN ORAL) Take 20 mg by mouth Active Encounters Date Type Department Care Team Description 04/11/2024 1:45 PM EST Treatment [address] [address] Zohreh Zaidi, PT Adhesive capsulitis of left shoulder (Primary Dx); Tendonitis; Incomplete tear of left rotator cuff, unspecified whether traumatic 03/21/2024 2:00 PM EST Evaluation [address] [address] Meagan Yeung, PT Adhesive capsulitis of left shoulder; Tendonitis; Incomplete tear of left rotator cuff, unspecified whether traumatic from Last 3 Months Social History Tobacco Use Types Packs/Day Years Used Date Smoking Tobacco: Never Assessed Comments Unknown Sex and Gender Information Value Date Recorded Sex Assigned at Not on file Legal Sex Female 9:51 PM EST Gender Identity Not on file Sexual Orientation Not on file Plan of Treatment Health Maintenance Due Date Last Done Comments Breast Cancer Screening 1965 DTaP,Tdap,and Td Vaccines (1 - Tdap) 06/26/1986 Hepatitis A Vaccines (1 of 2 - Risk 2-dose series) 06/26/1986 Hepatitis B Vaccines (1 of 3 - 19+ 3-dose series) 06/26/1986 Cervical Cancer Screening: Pap Smear 06/26/1988 Pneumococcal Vaccine: 50+ Years (2 of 2 - PCV) 07/22/2022 07/22/2021 COVID-19 Vaccine (4 - season) 2023 01/24/2021, 06/16/2020, 05/26/2020 Cholesterol Screening (Lipid Panel) 12/31/2023 Colorectal Cancer Screening: Colonoscopy 12/31/2023 Depression Screening 12/31/2023 HIV Screening 12/31/2023 Hepatitis C Screening 12/31/2023 Social Influencers of Health Screening 12/31/2023 Hypertension/CHF/CAD Annual BMP Blood Test 03/21/2024 Zoster Vaccines Completed 05/01/2020, 04/09, 01/19/2020 Pneumococcal Vaccine: Pediatrics (0 to 5 Years) and At-Risk Patients (6 to 64 Years) Aged Out 07/22/2021 No longer eligible based on patient's age to complete this topic Influenza Vaccine Completed 01/07/2024, , 01/21/2022, Additional history exists HIB Vaccines Aged Out No longer eligi ble based on patient's age to complete this topic HPV Vaccines Aged Out No longer eligi ble based on patient's age to complete this topic IPV Vaccines Aged Out No longer eligi ble based on patient's age to complete this topic MMR Vaccines Aged Out No longer eligi ble based on patient's age to complete this topic Meningococcal ACWY Vaccine Aged Out N o longer eligible based on patient's age to complete this topic Meningococcal B Vaccine Aged Out No l onger eligible based on patient's age to complete this topic RSV Immunization Patients Under 20 months Aged Out No longer eligible based on patient's age to complete this topic Varicella Vaccines Aged Out No longer eligible based on patient's age to complete this topic Insurance [employer] MEDICAID - [place] Care Teams Statistician Relationship Specialty Start Date End Date Noemi Blackman FNP [address] [place] [address] PCP - General Nurse Practitioner 03/03/24
--- OUTSIDE RECORDS SUMMARY | 2024-06-14 15:47 | XMS_ITS | Encounter Summary ---
Author Organization [facility] [address] Care Team Providers Care Quality Project Manager Name Role Phone Unavailable Primary Care Provider Unavailabl e Encounter Details Date Type Department Care Team (Late st Contact Info) Description 12/07/2023 5:04 PM EDT Hospital Encounter TH HISTORIC ENCOUNTERS EASTERN CONVERSION ONLY Liana Leyva PA [facility] [address] [place] [address] Social History Tobacco Use Types Packs/Day Years [...]
== END 2024-06-14 14:11 | disposition home or self-care (01) ==
LOC: HO.HMCFM 13:37
PROVIDERS: PCP Nurse Practitioner Family; Visit Provider Nurse Practitioner Family
DX: R73.03 Prediabetes (principal); E03.8 Other specified hypothyroidism; Z68.36 Body mass index [BMI] 36.0-36.9, adult; E66.01 Morbid (severe) obesity due to excess calories; M25.551 Pain in right hip; I10 Essential (primary) hypertension; M25.552 Pain in left hip; E78.2 Mixed hyperlipidemia; R94.4 Abnormal results of kidney function studies

== ENCOUNTER → 2024-06-14 13:21 | Outpatient (BNVA) | payer OTHER, SELFPAY | PROVIDERS: PCP Nurse Practitioner Family; Visit Provider Nurse Practitioner Family ==

== ENCOUNTER 2024-06-14 14:06 | Outpatient (REF) | payer OTHER, SELFPAY ==
--- OUTSIDE RECORDS SUMMARY | 2024-06-14 16:22 | XMS_ITS | Encounter Summary ---
Author Organization [facility] [place] [address] Care Team Providers Care Tai Chi Instructor Name Role Phone Unavailable Primary Care Provider Unavailabl e Encounter Details Date Type Department Care Team (Late st Contact Info) Description 12/07/2023 5:04 PM EDT Hospital Encounter TH HISTORIC ENCOUNTERS [facility]ASTERN CONVERSION ONLY L[facility] Leyva PA [facility] [address] [place] [address] Social History Tobacco Use Types Packs/Day Years [...]
--- OUTSIDE RECORDS SUMMARY | 2024-06-14 16:22 | XMS_ITS | Clinical Summary ---
Author Organization [facility] Address [address] [place] [address] Phone Care Team Providers Care Student Worker Name Role Phone Noemi Blackman Primary Care Provider [phone] Allergies No known active allergies Medications levothyroxine (SYNTHROID, LEVOTHROID) 50 mcg tablet TAKE 1 TABLET EVERY DAY Active amLODIPine (NORVASC) 10 mg tablet Take 1 Tablet by mouth daily Active olmesartan medoxomil (OLMESARTAN ORAL) Take 20 mg by mouth Active Encounters Date Type Department Care Team Description 04/11/2024 1:45 PM EST Treatment [address] [address] Zohreh Zaidi, PT Adhesive capsulitis of left shoulder (Primary Dx); Tendonitis; Incomplete tear of left rotator cuff, unspecified whether traumatic 03/21/2024 2:00 PM EST Evaluation [address] [address] Meagan Yeung, PT Adhesive capsulitis [...] patient's age to complete this topic Insurance [facility] PL[facility] MEDICAID - [place] Care Teams Student Worker Relationship Specialty Start Date End Date Noemi Blackman FNP [address] [place] [address] PCP - General Nurse Practitioner 03/03/24
[2024-06-14 18:49] LABS: Iron 51 mcg/dL (30-160); Percent Iron Saturation 19 % (15-50); Total Iron Binding Capacity 274 mcg/dL (228-428); Unsaturated Iron Binding 223 ug/dL
[2024-06-14 19:06] LABS: Ferritin 168 ng/mL (10-250); TSH reflex Free T4 3.77 uIU/mL (0.32-4.0)
[2024-06-14 19:19] LABS: Folate 15.5 ng/mL (> or = 4.0); Vitamin B12 502 pg/mL (200-900)
[2024-06-15 06:36] LABS: Estimated Average Glucose 120 mg/dL; Hemoglobin A1C 135.4599 umol/L; Hemoglobin A1c % 5.8 % (<6.0); Total Hemoglobin (HGBA1C) 3420.0316 umol/L
== END 2024-06-14 14:07 | disposition home or self-care (01) ==
LOC: HO.WFDLDS 14:06
PROVIDERS: Visit Provider Nurse Practitioner Family
DX: R73.03 Prediabetes (principal); E03.8 Other specified hypothyroidism; M25.551 Pain in right hip; M25.552 Pain in left hip; I10 Essential (primary) hypertension; E78.2 Mixed hyperlipidemia; E66.01 Morbid (severe) obesity due to excess calories; R94.4 Abnormal results of kidney function studies; Z85.3 Personal history of malignant neoplasm of breast
CPT/HCPCS: 36415; 82607; 82728; 82746; 83036; 83540; 84443; 99212

== ENCOUNTER 2024-09-04 08:21 | Outpatient (AMB) | payer OTHER, SELFPAY ==
--- OUTSIDE RECORDS SUMMARY | 2023-12-07 17:04 | XMS_ITS | Encounter Summary ---
Author Organization [facility] [place] [address] Care Team Providers Care Riveter Name Role Phone Unavailable Primary Care Provider Unavailabl e Encounter Details Date Type Department Care Team (Late st Contact Info) Description 12/07/2023 5:04 PM EDT Hospital Encounter TH HISTORIC ENCOUNTERS EASTERN CONVERSION ONLY [facility] PA [address] [facility] [address] [place] [address] Social History Tobacco Use Types Packs/Day Years [...]
--- NOTE | 2024-09-04 08:27 | MHC.PC.OV ---
Vital Signs 09/04/24 08:35 09/04/24 08:53 09/04/24 08:54 Height 5 ft 3 in Weight 193 lb 6 oz BMI 34.3 BP 134/60 114/70 90/58 L Blood Pressure Location Lt brachial Lt brachial Lt brachial Position Sitting Supine Standing Respiration 13 Pulse 82 Pulse Source Pulse Oximeter Temp 97.0 F Temp Source Temporal Artery Scan Pulse Oximetry (%) 99 Oxygen Delivery Method Room Air Intake Visit Reasons: dizziness and wt loss Intake Note: Patient c/o light headed on and off for the last two weeks Medicare Nurse Required: No Allergies No Known Allergies Allergy (Verified 09/04/24 08:41) Medication List - Last Reconciled 09/04/24 by Noemi Blackman, ARCHITECTURE ANALYST- amlodipine 10 mg PO DAILY bupropion HCl XL (Wellbutrin XL) 300 mg PO QAM calcium-vitamin D3-vitamin K 650 mg-12.5 mcg-40 mcg (Viactiv) 1 tab PO DAILY celecoxib (Celebrex) 50 mg PO BID PRN olmesartan 30 mg (1.5 x 20 mg) PO DAILY Tobacco use date assessed: 09/04/24 Dental Screening Dental Screen Date: 09/04/24 Did you have a dental visit in the last 12 months?: Yes Did you have a dental problem in the last 6 months where you did not have access to dental care?: No Was dental information given to patient?: Patient has dentist HPI HPI Comments History of Present Illness Details 59 y/o with right breast cancer lower outer quadrant Stage 1: pT1c, pN0 ER and [place] positive, HER2 Desmond negative s/p excision followed by radiation therapy, HTN, hypothyroid, IFG, obesity, tubular adenoma s/p Excisional biopsy of the breast/radioactive seed 12/22/2017, hysteroscopy D&C 2023 FAMILY HISTORY: Mom had ALS. Maternal grandma had breast cancer at the age of 68. Both mom and dad had skin cancer. Dad of heart attack. Mom had osteoporosis. 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 She is . Has 3 children. Smoked a pack a day quit 28 years ago. She drinks socially. 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 - lying down alleviates symptoms. - Describes weight loss potentially influencing antihypertensive medication effect. - Engages in a weight loss program and new treadmill exercises, developing pain in front of ble, worse at HS w/o swelling - Denies chest pain, fainting, bleeding, or dyspnea. Taking olmesartan 30mg QD and Norvasc 10mg QD, both in the AM -Does her best to hydrate w/ h20 Review of Systems - Cardiovascular: Reports dizziness, - Musculoskeletal: Reports aching pain in the front of legs, consistent with exercise. - Neurological: Reports episodes of dizziness when standing. - General: Reports significant weight loss. Exam: Awake alert NAD Orthostatic VS - felt dizzy w/ supine to stand No edema in BLE, + PP Discussion Notes I discussed with the patient the diagnosis of orthostatic hypotension, likely influenced by her recent weight loss and the current antihypertensive regimen. I recommended reducing the amlodipine dosage from 10 mg to 5 mg. We also discussed decreasing olmesartan to 20 mg, from 30mg, due to its diuretic effect, mindful of hydration status. I explained the importance of fluid intake to manage her dizziness. For the leg pain, I suggested potential rodriguez splints due to increased treadmill use and advised magnesium rub and shoe assessment. Follow-up planned in two weeks to reassess the blood pressure changes and symptom improvement. The patient is advised to check blood pressure at home and report any sustained increases or concerning symptoms. I reinforced the importance of continuing exercise with appropriate footwear, hydration, and stretching. Assessment and Plan 1. Orthostatic Hypotension - Reduce amlodipine to 5 mg. - Reduce olmesartan to 20 mg. - Increase hydration. - Follow-up in two weeks. 2. Weight Loss - intentional - Adjust medications. 3. Rodriguez Splints - Use magnesium rub. - Review footwear. - Stretch Achilles. Patient Instructions - Cut your amlodipine tablet in half to take 5 mg each day. - Reduce your olmesartan to one tablet daily (20 mg). - Make sure to drink plenty of water throughout the day. - Use a magnesium rub for leg pain. - Wear supportive shoes and stretch your Achilles tendons regularly. - Check your blood pressure at home. If the top number is over 140 or the bottom number is over 90 consistently, call the office. - Follow up in two weeks to see how you're doing with these changes. Consent Patient was informed and verbally consented to the use of an ambient scribe for clinic note documentation during this visit. Total time spent caring for the patient today was 30 minutes. This includes time spent before the visit reviewing the chart, time spent during the visit, and time spent after the visit on documentation, reviewing laboratory results, diagnostic imaging, medications, performing a medically necessary evaluation, counseling on diagnoses, care coordination, ordering appropriate tests, ordering appropriate medications, review of tests performed by other providers, reporting test results with the patient, communication with other healthcare providers. [facility] Medical History (Updated 09/04/24 @ 08:58 by Noemi Blackman [facility]) Encounter for Essure implantation HTN (hypertension) Hx of breast cancer Thyroid disease Surgical History (Updated 06/14/24 @ 08:01 by VENU IrvingDEVON) H/O lumpectomy History of colonoscopy (~2019) Family History Father HTN (hypertension) Skin cancer Stroke Substance abuse Mother ALS (amyotrophic lateral sclerosis) Skin cancer Social History Household Members: Family Household Members Other:: daughter Housing: House Are you a primary childcare director to a significant other at home: Yes Do you presently have visiting nurse or other home services: No 75 years or older and lives alone: No Alcohol intake: current Alcohol intake frequency: holidays/special occasions only Patient Tobacco Use Status: Former Tobacco user Tobacco use type: Cigarette e-Cigarette/Vaping Use: Never Used service: No Current occupational status: employed 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 Sexual orientation: Straight/Heterosexual Gender identity: Female Cognitive needs: No Hearing needs: No Vision needs: Yes (contacts) Questionnaire PHQ-9 Over the last 2 weeks, how often have you been bothered by any of the following problems? 1. Little interest or pleasure in doing things: not at all 2. Feeling down, depressed, or hopeless: not at all 3. Trouble falling or staying asleep, or sleeping too much: not at all 4. Feeling tired or having little energy: not at all 5. Poor appetite or overeating: not at all 6. Feeling bad about yourself - or that you are a failure or have let yourself or your family down: not at all 7. Trouble concentrating on things, such as reading the newspaper or watching television: not at all 8. Moving or speaking so slowly that other people could have noticed. Or the opposite - being so fidgety or restless that you have been moving around a lot more than usual: not at all 9. Thoughts that you would be better off or of hurting yourself in some way: not at all Total score: 0 Depression Screening Interpretation: Negative Depression Screening Done: Yes 28727 - PHQ-9 Billing: Yes Source: Developed by Drs. Octavio Rosario, Jaida Butterfield, Sebastian Zaragoza and colleagues, with an educational elisabeth from [employer]. Thrive Questionnaire Date Thrive assessed: 09/04/24 I am a: Patient What is your living situation today?: I have a steady place to live Within the past 12 months, did the food you bought not last and you didn't have the money to get more?: Never true Within the past 12 months, did you worry whether your food would run out before you got money to buy more?: Never true Do you have trouble paying for medicines?: No Do you have trouble getting transportation to medical appointments?: No Do you have trouble paying your heating and electricity bill?: No Do you have trouble taking care of your child, family member or friend?: No Do you have trouble with day-to-day activities such as bathing, preparing meals, shopping, managing finances, etc.?: No Are you currently unemployed and looking for a job?: No Are you interested in more education?: No Please select the resources that you would like help with: None Currently or been in a relationship where the following occur: No concerns reported THRIVE Score: 0 VALERIO-7 AMB Questionnaire VALERIO-7 Date VALERIO - 7 assessed: 09/04/24 Feeling nervous, anxious, or on edge: 0 = Not at all Not being able to stop or control worryin = Not at all Worrying too much about different things: 0 = Not at all Trouble relaxin = Not at all Being so restless that it is hard to sit still: 0 = Not at all Becoming easily annoyed or irritable: 0 = Not at all Feeling afraid as if something awful might happen: 0 = Not at all Total VALERIO-7 score (0-4 normal; 5-9 mild; 10-14 moderate; 15-21 severe): 0 Source: Developed by Drs. Octavio Rosario, Jaida Butterfield, Sebastian Zaragoza and colleagues, with an educational elisabeth from [employer]. VALERIO-7 Assessment Billing VALERIO-7 Assessment Tool: VALERIO-7 Assessment 45807 Physical exam (Primary Care) Vital Signs: Last Vital Signs Temp 97.0 F 09/04/24 08:35 Pulse 82 09/04/24 08:35 Resp 13 09/04/24 08:35 BP 134/60 09/04/24 08:35 Pulse Ox 99 09/04/24 08:35 Oxygen Delivery Method Room Air 09/04/24 08:35 BMI result Body Mass Index 34.3 Tobacco/Smoking Status: Tobacco use Status Tobacco use date assessed 09/04/24 09/04/24 08:30 Patient Tobacco Use Status Former Tobacco user 09/04/24 08:30 Tobacco use type Cigarette 09/04/24 08:30 e-Cigarette/Vaping Use Never Used 09/04/24 08:30 PHQ-9: PHQ-9 Score PHQ-9: Total score 0 09/04/24 08:30 Depression Screening Interpretation: Negative Thrive Assessment: Date of Thrive Assessment Date Thrive assessed 09/04/24 09/04/24 08:30 Currently or been in a relationship where the following occur: No concerns reported Coding Level of Care Code Est Pt Level 4 (72817) Complex EM visit Add On G2211 Diagnoses Rodriguez splints of both lower extremities S86.891A; S86.892A Primary hypertension I10 Hypertension type: primary hypertension Orthostasis I95.1 Additional Codes VALERIO-7 Assessment Billing - VALERIO-7 Assessment Tool: VALERIO-7 Assessment 11705 ([id number]) PHQ-9 - 69075 - PHQ-9 Billing: Yes ([id number]) Assessment & Plan Assessment & Plan (1) Rodriguez splints of both lower extremities: Code(s): S86.891A - Other injury of other muscle(s) and tendon(s) at lower leg level, right leg, initial encounter; S86.892A - Other injury of other muscle(s) and tendon(s) at lower leg level, left leg, initial encounter Category: Medical (2) HTN (hypertension): Code(s): I10 - Essential (primary) hypertension Category: Medical Qualifiers: Hypertension type: primary hypertension Qualified Code(s): I10 - Essential (primary) hypertension (3) Orthostasis: Code(s): I95.1 - Orthostatic hypotension Category: Medical Plan . Patient Instructions: Patient Instructions - Cut your amlodipine tablet in half to take 5 mg each day. - Reduce your olmesartan to one tablet daily (20 mg). - Make sure to drink plenty of water throughout the day. - Use a magnesium rub for leg pain. - Wear supportive shoes and stretch your Achilles tendons regularly. - Check your blood pressure at home. If the top number is over 140 or the bottom number is over 90 consistently, call the office. - Follow up in two weeks to see how you're doing with these changes.
[2024-09-04 08:35] VITALS: BP 134/60; PULSE 82; RESP 13; TEMP 36.1; O2SAT 99; BMI 34.3
[2024-09-04 08:53] VITALS: BP 114/70
[2024-09-04 08:54] VITALS: BP 90/58
== END 2024-09-04 08:59 | disposition home or self-care (01) ==
LOC: HO.HMCFM 08:22
PROVIDERS: PCP Nurse Practitioner Family; Visit Provider Nurse Practitioner Family
DX: S86.891A Other injury of other muscle(s) and tendon(s) at lower leg level, right leg, initial encounter (principal); S86.892A Other injury of other muscle(s) and tendon(s) at lower leg level, left leg, initial encounter; I10 Essential (primary) hypertension; I95.1 Orthostatic hypotension

== ENCOUNTER → 2024-09-04 08:21 | Outpatient (BNVA) | payer OTHER, SELFPAY | PROVIDERS: PCP Nurse Practitioner Family; Visit Provider Nurse Practitioner Family | DX: I10 Essential (primary) hypertension (principal); S86.891A Other injury of other muscle(s) and tendon(s) at lower leg level, right leg, initial encounter; S86.892A Other injury of other muscle(s) and tendon(s) at lower leg level, left leg, initial encounter; E03.9 Hypothyroidism, unspecified; E66.9 Obesity, unspecified; I95.1 Orthostatic hypotension; X58.XXXA Exposure to other specified factors, initial encounter; Y93.9 Activity, unspecified; Y92.9 Unspecified place or not applicable; Y99.9 Unspecified external cause status; Z68.34 Body mass index [BMI] 34.0-34.9, adult; Z85.3 Personal history of malignant neoplasm of breast | CPT/HCPCS: 96127; 99212 ==

== ENCOUNTER 2024-09-18 14:28 | Outpatient (AMB) | payer OTHER, SELFPAY ==
--- OUTSIDE RECORDS SUMMARY | 2023-12-07 17:04 | XMS_ITS | Encounter Summary ---
Author Organization [facility] [place] [address] Care Team Providers Care Global Consumer Sector Vice President Name Role Phone Unavailable Primary Care Provider Unavailabl e Encounter Details Date Type Department Care Team (Late st Contact Info) Description 12/07/2023 5:04 PM EDT Hospital Encounter TH HISTORIC ENCOUNTERS EASTERN CONVERSION ONLY [facility] PA [address] [facility] [address] [place] [address] Social History Tobacco Use Types Packs/Day Years [...]
--- NOTE | 2024-09-18 14:37 | A.OFFPC_ITS ---
Vital Signs 09/18/24 14:42 09/18/24 15:12 09/18/24 15:13 09/18/24 15:13 Height 5 ft 3 in Weight 191 lb 8 oz BMI 33.9 BP 120/68 120/70 110/60 80/40 L Blood Pressure Location Lt brachial Lt brachial Lt brachial Lt brachial Position Sitting Supine Sitting Standing Respiration 14 Pulse 107 H 90 93 120 H Pulse Source Pulse Oximeter Pulse Oximeter Pulse Oximeter Pulse Oximeter Temp 98.6 F Temp Source Oral Pulse Oximetry (%) 98 Oxygen Delivery Method Room Air Intake Visit Reasons: 2 weeks bp recheck Intake Note: patient is scheduled for B/P check Relay Shop Tester Required: No Allergies No Known Allergies Allergy (Verified 09/18/24 14:57) Medication List - Last Reconciled 09/18/24 by VENU Irving-BC amlodipine 10 mg PO DAILY bupropion HCl XL (Wellbutrin XL) 300 mg PO QAM calcium-vitamin D3-vitamin K 650 mg-12.5 mcg-40 mcg (Viactiv) 1 tab PO DAILY celecoxib (Celebrex) 50 mg PO BID PRN olmesartan 30 mg (1.5 x 20 mg) PO DAILY Tobacco use date assessed: 09/04/24 Dental Screening Dental Screen Date: 09/04/24 HPI HPI Comments History of Present Illness Details 59 y/o with right breast cancer lower ou ter quadrant Stage 1: pT1c, pN0 ER and [place] positive, HER2 [place] negative s/p excision followed by radiation therapy, HTN, hypothyroid, IFG, obesity, tubular adenoma s/p Excisional biopsy of the breast/radioactive seed 12/22/2017, hysteroscopy D&C 2023 FAMILY HISTORY: Mom had ALS. Maternal grandma had breast cancer at the age of 68. Both mom and dad had skin cancer. Dad of heart attack. Mom had osteoporosis. 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 She is . Has 3 children. Smoked a pack a day quit 28 years ago. She drinks socially. 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 - Continued dizziness though better - Taking norvasc 5mg and olmesartan 20mg QD - Trying to hydrate but admits to not dr inking enough Review of Systems - Cardiovascular: Reports dizziness. Den ies chest pain, fainting. - Neurological: Reports dizziness. Denie s syncope. Physical Exam Awake alert NAD Speaking in full sentences Symptomatic orthostasis causing dizziness and a headache; sx resolved w/ sitting. Discussion Notes During the visit, I discussed the nature and management of the patient's orthostatic hypotension and the recent modification of antihypertensive therapy. We have agreed on stopping amlodipine and reducing olmesartan to 10 mg. For the upcoming colonoscopy, I advised not taking bupropion on the day of the procedure and confirmed that olmesartan should be taken with a sip of water prior to the procedure. Emphasized the importance of sufficient fluid intake pre- and post- procedure, especially considering the expected dehydration from colon prep. Encouraged the use of salt and electrolyte-rich solutions to help maintain blood volume. Slow position changes . Scheduled follow-up in two weeks to reassess dizziness and overall progress. Assessment and Plan 1. Orthostatic hypotension - Discontinue amlodipine. Reduce olmesar roberto to 10 mg. - Advise on electrolyte intake. Follow-u p in two weeks. 2. Hypertension (essential) - Home blood pressure monitoring advised . - Gradual adjustment of medication dosag e. 3. Preparation for colonoscopy - Do not take bupropion on the day. - Take olmesartan with minimal water bef ore the procedure. Patient Instructions - Stop taking amlodipine. - Split olmesartan into 10 mg doses and take regularly. - Increase fluid and electrolyte intake. - Monitor blood pressure at home and not e any changes. - Do not take bupropion on the day of co lonoscopy; take other medications as instructed. - Stay well-hydrated before and after e colonoscopy. Consent Patient was informed and verbally consented to the use of an ambient scribe for clinic note documentation during this visit. Total time spent caring for the patient today was 30 minutes. This includes time spent before the visit reviewing the chart, time spent during the visit, and time spent after the visit on documentation, reviewing laboratory results, diagnostic imaging, medications, performing a medically necessary evaluation, counseling on diagnoses, care coordination, ordering appropriate tests, ordering appropriate medications, review of tests performed by other providers, reporting test results with the patient, communication with other healthcare providers. [facility] Medical History (Updated 09/04/24 @ 08:58 [facility] Encounter for Essure implantation HTN (hypertension) Hx of breast cancer Thyroid disease Surgical History (Updated 06/14/24 @ 08:01 by DANIELE Irving) H/O lumpectomy History of colonoscopy (~2019) Family History Father HTN (hypertension) Skin cancer Stroke Substance abuse Mother ALS (amyotrophic lateral sclerosis) Skin cancer Social History Household Members: Family Household Members Other:: daughter Housing: House Are you a primary respiratory care program director to a significant other at home: Yes Do you presently have visiting nurse or other home services: No 75 years or older and lives alone: No Alcohol intake: current Alcohol intake frequency: holidays/special occasions only Patient Tobacco Use Status: Former Tobacco user Tobacco use type: Cigarette e-Cigarette/Vaping Use: Never Used service: No Current occupational status: employed 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 Sexual orientation: Straight/Heterosexual Gender identity: Female Cognitive needs: No Hearing needs: No Vision needs: Yes (contacts) Questionnaire Thrive Questionnaire Date Thrive assessed: 03/08/24 I am a: Patient What is your living situation today?: I have a steady place to live Within the past 12 months, did the food you bought not last and you didn't have the money to get more?: Never true Within the past 12 months, did you worry whether your food would run out before you got money to buy more?: Never true Do you have trouble paying for medicines?: No Do you have trouble getting transportation to medical appointments?: No Do you have trouble paying your heating and electricity bill?: No Do you have trouble taking care of your child, family member or friend?: No Do you have trouble with day-to-day activities such as bathing, preparing meals, shopping, managing finances, etc.?: No Are you currently unemployed and looking for a job?: No Are you interested in more education?: No Please select the resources that you would like help with: None Currently or been in a relationship where the following occur: No concerns reported THRIVE Score: 0 VALERIO-7 AMB Questionnaire VALERIO-7 Date VALERIO - 7 assessed: 09/04/24 Source: Developed by Drs. Octavio Rosario, Jaida Butterfield, Sebastian Zaragoza and colleagues, with an educational elisabeth from [email or web address]. Physical exam (Primary Care) Vital Signs: Last Vital Signs Temp 98.6 F 09/18/24 14:42 Pulse 107 H 09/18/24 14:42 Resp 14 09/18/24 14:42 BP 120/68 09/18/24 14:42 Pulse Ox 98 09/18/24 14:42 Oxygen Delivery Method Room Air 09/18/24 14:42 BMI result Body Mass Index 33.9 Tobacco/Smoking Status: Tobacco use Status Tobacco use date assessed 09/04/24 09/18/24 14:39 Patient Tobacco Use Status Former Tobacco user 09/18/24 14:39 Tobacco use type Cigarette 09/18/24 14:39 e-Cigarette/Vaping Use Never Used 09/18/24 14:39 Thrive Assessment: Date of Thrive Assessment Date Thrive assessed 03/08/24 09/18/24 14:39 Currently or been in a relationship where the following occur: No concerns reported Coding Level of Care Code Est Pt Level 4 (43914) Complex EM visit Add On G2211 Diagnoses Primary hypertension I10 Hypertension type: primary hypertension Orthostasis I95.1 Assessment & Plan Assessment & Plan (1) HTN (hypertension): Code(s): I10 - Essential (primary) hypertension Category: Medical Qualifiers: Hypertension type: primary hypertension Qualified Code(s): I10 - Essential (primary) hypertension (2) Orthostasis: Code(s): I95.1 - Orthostatic hypotension Category: Medical Plan . Medications: Changed From olmesartan 30 mg (1.5 x 20 mg) PO DAILY 90 tabs 2RF To olmesartan 10 mg (1/2 x 20 mg) PO DAILY 90 tabs 2RF Refilled bupropion HCl XL (Wellbutrin XL) 300 mg PO QAM 90 tabs 1RF Discontinued amlodipine Discontinued Reason: Doctor's Order 10 mg PO DAILY 90 tabs 1RF
[2024-09-18 14:42] VITALS: BP 120/68; PULSE 107; RESP 14; TEMP 37; O2SAT 98; BMI 33.9
[2024-09-18 15:12] VITALS: BP 120/70; PULSE 90
[2024-09-18 15:13] VITALS: BP 110/60; BP 80/40; PULSE 120; PULSE 93
== END 2024-09-18 15:12 | disposition home or self-care (01) ==
LOC: HO.HMCFM 14:29
PROVIDERS: PCP Nurse Practitioner Family; Visit Provider Nurse Practitioner Family
DX: I10 Essential (primary) hypertension (principal); I95.1 Orthostatic hypotension

== ENCOUNTER → 2024-09-18 14:28 | Outpatient (BNVA) | payer OTHER, SELFPAY | PROVIDERS: PCP Nurse Practitioner Family; Visit Provider Nurse Practitioner Family | DX: I10 Essential (primary) hypertension (principal); I95.1 Orthostatic hypotension | CPT/HCPCS: 99212 ==

== ENCOUNTER 2024-10-06 10:14 | Outpatient (AMB) | payer OTHER, SELFPAY ==
--- OUTSIDE RECORDS SUMMARY | 2023-12-07 17:04 | XMS_ITS | Encounter Summary ---
Author Organization [facility] [place] [address] Care Team Providers Care Cash Grain Grower Name Role Phone Unavailable Primary Care Provider Unavailabl e Encounter Details Date Type Department Care Team (Late st Contact Info) Description 12/07/2023 5:04 PM EDT Hospital Encounter TH HISTORIC ENCOUNTERS EASTERN CONVERSION ONLY [facility] PA [address] [facility] [address] [place] [address] Social History Tobacco Use Types Packs/Day Years [...]
--- NOTE | 2024-10-06 10:25 | MHC.PC.OV ---
Vital Signs 10/06/24 10:27 10/06/24 10:32 10/06/24 10:32 10/06/24 10:32 Height 5 ft 3 in Weight 190 lb 6 oz BMI 33.7 BP 133/75 141/75 H 142/69 H 121/76 Blood Pressure Location Lt brachial Lt brachial Lt brachial Lt brachial Position Sitting Supine Sitting Standing Respiration 12 Pulse 83 80 81 85 Pulse Source Pulse Oximeter Pulse Oximeter Pulse Oximeter Pulse Oximeter Temp 98.3 F Temp Source Oral Pulse Oximetry (%) 100 Oxygen Delivery Method Room Air Intake Visit Reasons: 2 weeks FU ORTHOSTATIC VITAL SIGNS Intake Note: Two week follow up. Home cuff 133/75 pulse 83. 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: No Allergies No Known Allergies Allergy (Verified 10/06/24 10:55) Medication List - Last Reconciled 10/06/24 by VENU Irving- bupropion HCl XL (Wellbutrin XL) 300 mg PO QAM calcium-vitamin D3-vitamin K 650 mg-12.5 mcg-40 mcg (Viactiv) 1 tab PO DAILY celecoxib (Celebrex) 50 mg PO BID PRN olmesartan 10 mg (1/2 x 20 mg) PO DAILY Tobacco use date assessed: 10/06/24 Dental Screening Dental Screen Date: 10/06/24 Did you have a dental visit in the last 12 months?: Yes Did you have a dental problem in the last 6 months where you did not have access to dental care?: No Was dental information given to patient?: Patient has dentist HPI HPI Comments History of Present Illness Details 59 y/o with right breast cancer lower outer quadrant Stage 1: pT1c, pN0 ER and OR positive, HER2 [place] negative s/p excision followed by radiation therapy, HTN, hypothyroid, IFG, obesity, tubular adenoma s/p Excisional biopsy of the breast/radioactive seed 12/22/2017, hysteroscopy D&C 2023 FAMILY HISTORY: Mom had ALS. Maternal grandma had breast cancer at the age of 68. Both mom and dad had skin cancer. Dad of heart attack. Mom had osteoporosis. 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 She is . Has 3 children. Smoked a pack a day quit 28 years ago. She drinks socially. Health Maintenance Pap 10/13/23 WNL Colon 10/17/2018 [facility] tubular adenoma, repeat 2023 referred to [facility] next appt August 2024 Mammo 12/11/23 [facility] - need report DEXA 12/2023 [facility] Heme q 6 mo GI History of Present Illness - The patient is a 59-year-old female presenting with follow-up of orthostatic vital signs and evaluation of dizziness. - Previously advised to stop amlodipine; taking 10 mg olmesartan for orthostatic hypotension. - Noted improvement in dizziness since medication adjustment and better hydration. - Continues to experience occasional dizziness, likely related to hydration levels as this cont to be a struggle for her - Blood pressure is stabilized with less dizziness, though it can still occur sporadically but nothing like before. - Denies chest pain, shortness of breath, or visual changes. - Home BP cuff brought into office today; was not using correctly; education provided; calibrated. It is working & accurate. - Colon was postponed d/t blood pressure. Review of Systems - Cardiovascular: Reports improved blood pressure stability, occasional dizziness. - Neurological: Denies changes in vision, reports episodes of yawning. - Respiratory: Denies shortness of breath. - General: Reports feeling better overall. Physical Exam Awake alert NAD Speaking in full sentences PERRLA RRR LS CTAB No edema BLE Discussion Notes The patient was informed about the likely diagnosis related to orthostatic hypotension and the management being undertaken, including medication adjustment to olmesartan 10 mg daily and the importance of maintaining adequate hydration. Education was provided on the role of lifestyle modifications in managing conditions such as dizziness and orthostatic hypotension. Emphasized the importance of sufficient fluid intake pre- and post-procedure, especially considering the expected dehydration from colon prep. Encouraged the use of salt and electrolyte-rich solutions to help maintain blood volume. Slow position changes. Assessment and Plan 1. Orthostatic hypotension - Discontinue amlodipine. Cont olmesartan to 10 mg. - Advise on electrolyte intake. Follow-up in two weeks. 2. Hypertension (essential) - Home blood pressure monitoring advised. 3. Preparation for colonoscopy - Message sent to [facility] letting them know she is cleared for procedure. She can f/u with them to schedule her colon. Patient Instructions - Continue taking olmesartan 10 mg daily. - Drink enough water daily to stay hydrated. - Monitor blood pressure regularly. - Call the GI office soon to reschedule appointment following blood pressure stabilization. - Reach out if symptoms worsen or do not improve. - RTO Oct CPE, sooner PRN Consent Patient was informed and verbally consented to the use of an ambient scribe for clinic note documentation during this visit. Total time spent caring for the patient today was 30 minutes. This includes time spent before the visit reviewing the chart, time spent during the visit, and time spent after the visit on documentation, reviewing laboratory results, diagnostic imaging, medications, performing a medically necessary evaluation, counseling on diagnoses, care coordination, ordering appropriate tests, ordering appropriate medications, review of tests performed by other providers, reporting test results with the patient, communication with other healthcare providers. [facility] Medical History (Updated 09/04/24 @ 08:58 by DANIELE Irving) Encounter for Essure implantation HTN (hypertension) Hx of breast cancer Thyroid disease Surgical History (Updated 06/14/24 @ 08:01 by DANIELE Irving) H/O lumpectomy History of colonoscopy (~2019) Family History Father HTN (hypertension) Skin cancer Stroke Substance abuse Mother ALS (amyotrophic lateral sclerosis) Skin cancer Social History (Updated 10/06/24 @ 10:39 by Francy Keita CMA) Household Members: Family Household Members Other:: daughter Housing: House Are you a primary special needs child caregiver to a significant other at home: Yes Do you presently have visiting nurse or other home services: No 75 years or older and lives alone: No Alcohol intake: current Alcohol intake frequency: holidays/special occasions only Patient Tobacco Use Status: Former Tobacco user Tobacco use type: Cigarette e-Cigarette/Vaping Use: Never Used service: No Current occupational status: employed 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 Current occupational exposures/hazards: No Sexual orientation: Straight/Heterosexual Gender identity: Female Cognitive needs: No Hearing needs: No Vision needs: Yes (contacts) Questionnaire Thrive Questionnaire Date Thrive assessed: 10/06/24 I am a: Patient What is your living situation today?: I have a steady place to live Within the past 12 months, did the food you bought not last and you didn't have the money to get more?: Never true Within the past 12 months, did you worry whether your food would run out before you got money to buy more?: Never true Do you have trouble paying for medicines?: No Do you have trouble getting transportation to medical appointments?: No Do you have trouble paying your heating and electricity bill?: No Do you have trouble taking care of your child, family member or friend?: No Do you have trouble with day-to-day activities such as bathing, preparing meals, shopping, managing finances, etc.?: No Are you currently unemployed and looking for a job?: No Are you interested in more education?: No Please select the resources that you would like help with: None Currently or been in a relationship where the following occur: No concerns reported THRIVE Score: 0 AUDIT C Alcohol Use Questionnaire (AUDIT-C) 1. How often do you have a drink containing alcohol?: 2-3 times a week 2. How many drinks containing alcohol do you have on a typical day when you are drinking?: 1 or 2 3. How often do you have six or more drinks on one occasion?: Never Total Score: 3 VALERIO-7 AMB Questionnaire VALERIO-7 Date VALERIO - 7 assessed: 10/06/24 Source: Developed by Drs. Octavio Rosario, Jaida Butterfield, Sebastian Zaragoza and colleagues, with an educational elisabeth from [employer]. Physical exam (Primary Care) Vital Signs: Last Vital Signs Temp 98.3 F 10/06/24 10:27 Pulse 85 10/06/24 10:32 Resp 12 10/06/24 10:27 BP 121/76 10/06/24 10:32 Pulse Ox 100 10/06/24 10:27 Oxygen Delivery Method Room Air 10/06/24 10:27 BMI result Body Mass Index 33.7 Tobacco/Smoking Status: Tobacco use Status Tobacco use date assessed 10/06/24 10/06/24 10:39 Patient Tobacco Use Status Former Tobacco user 10/06/24 10:39 Tobacco use type Cigarette 10/06/24 10:39 e-Cigarette/Vaping Use Never Used 10/06/24 10:39 Thrive Assessment: Date of Thrive Assessment Date Thrive assessed 10/06/24 10/06/24 10:46 Currently or been in a relationship where the following occur: No concerns reported Coding Level of Care Code Est Pt Level 4 (44221) Complex EM visit Add On G2211 Diagnoses Primary hypertension I10 Hypertension type: primary hypertension Orthostasis I95.1 Tubular adenoma D36.9 Assessment & Plan Assessment & Plan (1) HTN (hypertension): Code(s): I10 - Essential (primary) hypertension Category: Medical Qualifiers: Hypertension type: primary hypertension Qualified Code(s): I10 - Essential (primary) hypertension (2) Orthostasis: Code(s): I95.1 - Orthostatic hypotension Category: Medical (3) Tubular adenoma: Comment: of colon, repeat due 2023 Code(s): D36.9 - Benign neoplasm, unspecified site Category: Medical Plan /
[2024-10-06 10:27] VITALS: BP 133/75; PULSE 83; RESP 12; TEMP 36.8; O2SAT 100; BMI 33.7
[2024-10-06 10:32] VITALS: BP 121/76; BP 141/75; BP 142/69; PULSE 80; PULSE 81; PULSE 85
== END 2024-10-06 11:12 | disposition home or self-care (01) ==
LOC: HO.HMCFM 10:15
PROVIDERS: PCP Nurse Practitioner Family; Visit Provider Nurse Practitioner Family
DX: I10 Essential (primary) hypertension (principal); I95.1 Orthostatic hypotension; D36.9 Benign neoplasm, unspecified site

== ENCOUNTER → 2024-10-06 10:14 | Outpatient (BNVA) | payer OTHER, SELFPAY | PROVIDERS: PCP Nurse Practitioner Family; Visit Provider Nurse Practitioner Family | DX: I10 Essential (primary) hypertension (principal); I95.1 Orthostatic hypotension; Z85.3 Personal history of malignant neoplasm of breast; Z86.0101 Personal history of adenomatous and serrated colon polyps; Z79.899 Other long term (current) drug therapy | CPT/HCPCS: 99212 ==

== ENCOUNTER 2024-12-11 14:56 | Outpatient (REF) | payer OTHER, SELFPAY ==
--- OUTSIDE RECORDS SUMMARY | 2023-12-07 17:04 | XMS_ITS | Encounter Summary ---
Author Organization [facility] [place] [address] Care Team Providers Care Engraver Wood Name Role Phone Unavailable Primary Care Provider Unavailabl e Encounter Details Date Type Department Care Team (Late st Contact Info) Description 12/07/2023 5:04 PM EDT Hospital Encounter TH HISTORIC ENCOUNTERS EASTERN CONVERSION ONLY [facility] [address] [facility] [address] [place] [address] Social History Tobacco Use Types Packs/Day Years [...]
--- OUTSIDE RECORDS SUMMARY | 2024-12-11 17:19 | XMS_ITS | Clinical Summary ---
Author Organization [address] [place] [address] Address [address] [place] [address] Phone Care Team Providers Care Problem Manager Name Role Phone Noemi Blackman Primary Care Provider Allergies No known active allergies Medications levothyroxine (SYNTHROID, LEVOTHROID) 50 mcg tablet TAKE 1 TABLET EVERY DAY Active amLODIPine (NORVASC) 10 mg tablet Take 1 Tablet by mouth daily Active olmesartan medoxomil (OLMESARTAN ORAL) Take 20 mg by mouth Active Social History Tobacco Use Types Packs/Day Years Used Date Smoking Tobacco: Never Assessed Comments Unknown Sex and Gender Information Value Date Recorded Sex Assigned at Not on file Legal Sex Female 9:51 PM EST Gender Identity Not on file Sexual Orientation Not on file Plan of Treatment Health Maintenance Due Date Last Done Comments Breast Cancer Screening 1965 Colorectal Cancer Screening: Colonoscopy 1965 DTaP,Tdap,and Td Vaccines (1 - Tdap) 06/26/1986 Hepatitis A Vaccines (1 of 2 - Risk 2-dose series) 06/26/1986 Hepatitis B Vaccines (1 of 3 - 19+ 3-dose series) 06/26/1986 Cervical Cancer Screening: Pap Smear 06/26/1988 Pneumococcal Vaccine: 50+ Years (2 of 2 - PCV) 07/22/2022 07/22/2021 Cholesterol Screening (Lipid Panel) 12/31/2023 HIV Screening 12/31/2023 Hepatitis C Screening 12/31/2023 Social Influencers of Health Screening 12/31/2023 Depression Screening 03/08/2024 Hypertension/CHF/CAD Annual BMP Blood Test 03/21/2024 COVID-19 Vaccine ( season) 2024 01/24/2021, 06/16/2020, 05/26/2020 Influenza Vaccine (#1) 2024 , 12/26/2022, 01/21/2022, Additional history exists RSV Immunization Adult Patients (1 - 1-dose 75+ series) 06/26/2042 Zoster Vaccines Completed 05/01/2020, 04/09, 01/19/2020 HIB Vaccines Aged Out No longer eligi [...] patient's age to complete this topic Insurance [facility] MEDICAID - [place] Care Teams Problem Manager Relationship Specialty Start Date End Date Noemi Blackman FNP [address] [place] [address] PCP - General Nurse Practitioner 03/03/24
--- OUTSIDE RECORDS SUMMARY | 2024-12-11 17:19 | XMS_ITS | Clinical Summary ---
Author Organization [facility] Address [address] [place] [phone] Phone Care Team Providers Care Multi Craft Maintenance Technician Name Role Phone Abdullahi Noemi Lexie ADONIS Primary Care Provider Allergies No known active allergies Medications olmesartan (BENICAR) 20 mg tablet Take 10 mg by mouth every morning. Active buPROPion (WELLBUTRIN XL) 300 MG ER 24 hr tablet Take 300 mg by mouth every morning. Active celecoxib (CELEBREX) 50 MG capsule TAKE 1 TO 2 CAPSULES BY MOUTH TWICE A DAY NEEDED FOR PAIN *USE SPARINGLY 5 Active Encounters Date Type Department Care Team Description 09/19/2024 1:30 PM EDT Pre-Admission Testing Pre Procedure Evaluation [address] [place] [address] Pepe Richard MD from Last 3 Months Social History Tobacco Use Types Packs/Day Years Used Date Smoking Tobacco: Former Cigarettes Q uit: 1996 Smokeless Tobacco: Never Tobacco Cessation:Counseling Given: Not Answered Alcohol Use Standard Drinks/Week Comments Yes 1 (1 standard drink = 0.6 oz pur e alcohol) 1 per week Education Answer Date Recorded Are you interested in more education? Not on vivienne e 07/07/2024 Are you concerned about learning? Not on file 07/07/2024 No 07/07/2024 No 07/07/2024 Digital Access Answer Date Recorded No 07/07/2024 No 07/07/2024 Reliable internet access at home? Not on file 07/07/2024 Device with a working camera? Not on file Intimate Partner Violence Answer Date R ecorded Denied Basic Needs Not on file 09/20/2024 In the past 12 months have y ou been in a relationship with a person who hurts, threatens, or tries to control you? No 09/20/2024 Worried food would run out Not on file 09/20 In the past 12 months have y ou been in a relationship with a person who hurts, threatens, or tries to control you? No 09/20/2024 Comments Unknown Sex and Gender Information Value Date Recorded Sex Assigned at Not on file Legal Sex Female 1:24 PM EDT Gender Identity Not on file Sexual Orientation Not on file Last Filed Vital Signs Vital Sign Reading Time Taken Comments Blood Pressure - - Pulse - - Temperature - - Respiratory Rate - - Oxygen Saturation - - Inhaled Oxygen Concentration - - Weight 83.9 kg (185 lb) 09/20/2024 2:03 PM EDT Height 160 cm (5' 3 ) 09/20/2024 2:03 PM EDT Body Mass Index 32.77 09/20/2024 2:03 PM EDT Plan of Treatment Upcoming Encounters Date Type Department Care Team (Late st Contact Info) Description 01/31/2025 Procedure Pass [facility]oscopy Admitting Dept Virtual Department [address] [place] [phone] 01/31/2025 8:15 AM EST Hospital Encounter [facility] Admitting Dept Virtual Department [address] [place] [phone] Pepe Richard MD [address] [place] [phone] 01/31/2025 8:15 AM EST - 01/31/2025 8:30 AM EST Surgery [facility]oscopy Admitting Dept Virtual Department [address] [place] [phone] Pepe Richard MD [address] [place] [phone] COLONOSCOPY Scheduled Procedures Name Priority Associated Diagnoses Date/Ti me COLONOSCOPY History of colonic polyps 01/31/2025 8:15 AM EST Health Maintenance Due Date Last Done Comments Adult Td,Tdap Booster 1965 CREATININE LEVEL 1967 LIPID PANEL 1967 POTASSIUM LEVEL 1967 DEPRESSION SCREENING 1979 HEPATITIS C SCREENING 06/26/1985 HIV ONE-TIME SCREENING (18-65 YEARS) 06/26/1985 PAP SMEAR 06/26/1988 SCREENING FOR DIABETES 06/26/2002 MAMMOGRAM 2007 COLOGUARD 06/26/2012 COLONOSCOPY 06/26/2012 COLORECTAL CANCER SCREENING 06/26/2012 FIT TEST 06/26/2012 FOBT 06/26/2012 SIGMOIDOSCOPY 06/26/2012 VIRTUAL COLONOSCOPY 06/26/2012 PNEUMOCOCCAL VACCINES (50+ years) (2 of 2 - PCV) 07/22/2022 07/22/2021 INFLUENZA VACCINE (#1) 2024 , 12/26/2022, 01/21/2022, Additional history exists COVID-19 VACCINE ( season) 2024 01/24/2021, 06/16/2020, 05/26/2020 SMOKING Hx and SMOKELESS TOBACCO SCREENING 09/20/2025 09/20/2024 RSV VACCINE (1 - 1-dose 75+ series) 06/26/2042 ZOSTER VACCINES Completed 05/01/2020, 01/19/2020 HEPATITIS A VACCINES Aged Out No long er eligible based on patient's age to complete this topic HIB VACCINES Aged Out No longer eligi ble based on patient's age to complete this topic MENINGOCOCCAL VACCINES (ACWY) Aged Out No longer eligible based on patient's age to complete this topic MENINGOCOCCAL VACCINES (B) Aged Out N o longer eligible based on patient's age to complete this topic Medical Devices Not on file Insurance [facility] [place] NSPG PCP [employer] NON NSPG PCP [employer] NON [place]SPG PCP S[employer] NON [place]SPG PCP [employer] Member Subscriber Plan / Payer (Ef fective 2023-Present) Name:Kaykay Lopez Relation to Subscriber:Self Name:Kaykay Lopez Payer ID:[id number] Type:HMO Address: [place] [id number] [employer] NON NSPG PCP [employer] [facility] NON NSPG PCP [employer] Care Teams Multi Craft Maintenance Technician Relationship Specialty Start Date End Date Noemi Fernando NP [email or web address] PCP - General Nurse Practitioner 10/08/23 Additional Source Comments The information contained in this document represents components of the legal health record. It is not the complete legal health record.[facility]
== END 2024-12-11 14:57 | disposition home or self-care (01) ==
LOC: HO.MAMMO 14:56
PROVIDERS: PCP Nurse Practitioner Family; Visit Provider Internal Medicine Medical Oncology
DX: Z12.31 Encounter for screening mammogram for malignant neoplasm of breast (principal)
CPT/HCPCS: 77063; 77067

== ENCOUNTER → 2024-12-11 15:30 | Outpatient (BNV) | payer OTHER, SELFPAY | PROVIDERS: PCP Nurse Practitioner Family; Visit Provider Internal Medicine | DX: Z12.31 Encounter for screening mammogram for malignant neoplasm of breast (principal) | CPT/HCPCS: 77063; 77067 ==

== ENCOUNTER 2025-02-20 13:26 | Outpatient (AMB) | payer OTHER, SELFPAY ==
--- OUTSIDE RECORDS SUMMARY | 2023-12-07 16:04 | XMS_ITS | Encounter Summary ---
Author Organization [facility] [place] [address] Care Team Providers Care Punch Out Crew Member Name Role Phone Unavailable Primary Care Provider Unavailabl e Encounter Details Date Type Department Care Team (Late st Contact Info) Description 12/07/2023 5:04 PM EDT Hospital Encounter TH HISTORIC ENCOUNTERS EASTERN CONVERSION ONLY Liana Leyva PA [address] [address] [place] [address] Social History Tobacco Use Types Packs/Day Years Used Date Smoking Tobacco: Never Assessed Comments Unknown Sex and Gender Information Value Date Recorded Sex Assigned at Not on file Legal Sex Female 9:51 PM EST Gender Identity Not on file Sexual Orientation Not on file documented as of this encounter Plan of Treatment Not on file documented as of this encounter Visit Diagnoses Not on filedocumented in this encounter
--- NOTE | 2025-02-20 13:30 | MHC.PC.OV ---
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 Allergies No Known Allergies Allergy (Verified 02/20/25 13:31) Medication List - Last Reconciled 02/20/25 by Noemi Blackman, [employer] INSTRUCTOR- bupropion HCl XL (Wellbutrin XL) 300 mg PO QAM calcium-vitamin D3-vitamin K 650 mg-12.5 mcg-40 mcg (Viactiv) 1 tab PO DAILY olmesartan 10 mg (1/2 x 20 mg) PO DAILY Tobacco use date assessed: 02/20/25 Dental Screening Dental Screen Date: 02/20/25 Did you have a dental visit in the last 12 months?: Yes Did you have a dental problem in the last 6 months where you did not have access to dental care?: No Was dental information given to patient?: Patient has dentist HPI HPI Comments History of Present Illness Details 59 y/o with right breast cancer lower outer quadrant Stage 1: pT1c, pN0 ER and HI positive, HER2 Desmond negative s/p excision followed by radiation therapy, HTN, hypothyroid, IFG, obesity, tubular adenoma s/p Excisional biopsy of the breast/radioactive seed 12/22/2017, hysteroscopy D&C 2023 FAMILY HISTORY: Mom had ALS. Maternal grandma had breast cancer at the age of 68. Both mom and dad had skin cancer. Dad of heart attack. Mom had osteoporosis. 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 She is . Has 3 children. Smoked a pack a day quit 28 years ago. She drinks socially. Health Maintenance Pap 10/2024 [facility] Colon 10/17/2018 [facility] tubular adenoma, COLON 01/27/25 + POLYP [facility] repeat 3 years (2027) Mammo 12/11/23 [facility] - need report DEXA 12/2023 [facility] [employer]TRUDER Heme q 6 mo GI History of Present Illness The patient is a 59 year old female presenting for evaluation of left ankle and leg pain. Left Ankle Pain and Paresthesia: - The patient reports hitting her left ankle on a rocking chair months ago, causing an intense sensation similar to hitting a funny bone, which almost caused her to pass out. - Following the injury, she experiences a tingling, funny bone-like sensation that shoots to her fifth and fourth toes whenever her ankle is touched, even lightly by blankets. - Initially, her toes were numb, but sensation has since returned. - There was no swelling or redness at the time of injury or currently. - She can walk and work on her feet all day without issue, but avoids touching the ankle due to the sensitivity. - She has a history of a displaced tendon in that ankle from a young age, which audibly pops with movement. 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 Left Leg Pain: - The patient has a history of pain radiating down her left leg, which she differentiates from her current ankle symptoms. - This pain is now less severe and primarily occurs at night. - At one point, the pain was severe enough to impair walking. - A previous trial of celecoxib, with dosages up to 100 mg twice daily, was ineffective, and she has since stopped taking it. This pain was thought to be sciatica. Seems to be worse at HS. Preventative Care: - The patient completed a colonoscopy in January 2025 - The procedure identified a 10 mm polyp and smaller 3 mm polyps. - In the past, she has had a tubular adenoma removed. - A repeat colonoscopy is recommended in 3 years due to the size of the polyp. Review of Systems - Musculoskeletal: Reports pain radiating down the left leg, worse at night. - Neurological: Reports tingling sensation in the left fourth and fifth toes, and hypersensitivity of the left ankle to touch, following a traumatic injury. - General: Denies inability to walk or work. - Integumentary: Denies swelling or redness of the left ankle. Physical Exam General: Well developed, well nourished, in no acute distress. Appears stated age. Head: Normocephalic, atraumatic. Musculoskeletal: Joints are nontender, without swelling, redness, or effusions. Left ankle exhibits paresthesia and pain with palpation over lateral malleolus and dorsum of ankle proximal to the lateral malleolus; No swelling or redness noted. Reflexes are strong. Abnormal vibratory and monofilament sensation affecting 4th and 5th toe, worse on the 5th toe. She has two well demarcated flat pink/purple plaques on dorsum L ankle. Pulses: Peripheral pulses are equal and palpable bilaterally. Nice, strong, regular pulses noted. Extremities: No clubbing, cyanosis nor edema is noted. Psych: Mood and affect appropriate. Results - Colonoscopy (January 2022): A 10 mm polyp and a 3 mm polyp were found. Medical Decision Making The patient is a 59-year-old female presenting with left ankle pain, paresthesia, and allodynia following a trauma several months ago, superimposed on a chronic history of left leg pain suggestive of sciatica. The ankle symptoms, characterized by a tingling sensation radiating to the fourth and fifth toes upon light touch, are suggestive of nerve involvement, possibly related to the initial trauma or her pre-existing displaced ankle tendon. Physical exam reveals good strength and pulses, but confirms decreased sensation in the lateral toes and tenderness over the lateral malleolus, supporting a localized neuropathic process. To evaluate for a possible occult fracture or bone fragment from the injury, an x-ray of the left ankle and foot is the initial diagnostic step. If imaging is not feasible for the patient, a direct referral to a foot and ankle orthopedist is an alternative. For the nocturnal leg and ankle pain, a trial of gabapentin is warranted, given its efficacy for neuropathic pain and the failure of prior celecoxib therapy. Her recent colonoscopy results were reviewed; the presence of a 10 mm polyp necessitates a repeat procedure in 3 years, and she will provide pathology details once available. Plan 1. Left Ankle Pain And Radiculopathy - An order will be placed for an x-ray of the left ankle and foot to rule out an occult fracture or bone fragment. - The patient will investigate insurance coverage for the imaging and notify the office of the cost. - If the x-ray is not feasible, a referral will be placed to the foot and ankle specialty group at [facility] for evaluation. - A prescription for gabapentin 100 mg to be taken at bedtime as needed will be sent to [facility] in [place] to manage nerve pain in both the leg and ankle. 2. History Of Colon Polyps - The patient had a colonoscopy in January 2022 where a 10 mm polyp was found. - A repeat colonoscopy is recommended in 3 years (2027). - The patient will follow up with the pathology results of the polyp 3. Ankle skin lesions just had 6 mo skin check, foot was not examined, monitor, take pics, if cont have derm look @ these @ next visit, incidental to todays exam. Patient Instructions - You will receive an order for an X-ray of your left foot and ankle. - Please call your insurance to check the cost of the X-ray. - Send a portal message to inform us of the cost. - If the cost is too high, we will refer you to a foot and ankle specialist instead. - I have sent a prescription for Gabapentin 100 mg to [facility] on [facility] in [place]. - You can take one tablet at bedtime as needed for your leg and ankle pain. - Please send the pathology report from your colonoscopy, specifically the name of the polyp that was removed. - You will need to schedule a follow-up colonoscopy in 3 years. - Continue to monitor the skin spot on your foot and take a picture of it. Consent Patient was informed and verbally consented to the use of an ambient scribe for clinic note documentation during this visit. Total time spent caring for the patient today was 30 minutes. This includes time spent before the visit reviewing the chart, time spent during the visit, and time spent after the visit on documentation, reviewing laboratory results, diagnostic imaging, medications, performing a medically necessary evaluation, counseling on diagnoses, care coordination, ordering appropriate tests, ordering appropriate medications, review of tests performed by other providers, reporting test results with the patient, communication with other healthcare providers. [facility] Medical History (Updated 02/20/25 @ 14:50 by VENU Irving-DEVON) Encounter for Essure implantation HTN (hypertension) Hx of breast cancer Thyroid disease Tubular adenoma Surgical History (Updated 02/20/25 @ 14:51 by VENU Irving-DEVON) H/O lumpectomy History of colonoscopy (~01/27/25) Family History Father HTN (hypertension) Skin cancer Stroke Substance abuse Mother ALS (amyotrophic lateral sclerosis) Skin cancer Social History Household Members: Family Household Members Other:: daughter Housing: House Are you a primary home care manager rn to a significant other at home: Yes Do you presently have visiting nurse or other home services: No 75 years or older and lives alone: No Alcohol intake: current Alcohol intake frequency: holidays/special occasions only Patient Tobacco Use Status: Former Tobacco user Tobacco use type: Cigarette e-Cigarette/Vaping Use: Never Used Second Hand Smoke Exposure: No service: No Current occupational status: employed 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 Current occupational exposures/hazards: No Sexual orientation: Straight/Heterosexual Gender identity: Female Cognitive needs: No Hearing needs: No Vision needs: Yes (contacts) Questionnaire PHQ-9 Over the last 2 weeks, how often have you been bothered by any of the following problems? 1. Little interest or pleasure in doing things: not at all 2. Feeling down, depressed, or hopeless: not at all 3. Trouble falling or staying asleep, or sleeping too much: not at all 4. Feeling tired or having little energy: not at all 5. Poor appetite or overeating: not at all 6. Feeling bad about yourself - or that you are a failure or have let yourself or your family down: not at all 7. Trouble concentrating on things, such as reading the newspaper or watching television: not at all 8. Moving or speaking so slowly that other people could have noticed. Or the opposite - being so fidgety or restless that you have been moving around a lot more than usual: not at all 9. Thoughts that you would be better off or of hurting yourself in some way: not at all Total score: 0 Depression Screening Interpretation: Negative Depression Screening Done: Yes 95244 - PHQ-9 Billing: Yes Source: Developed by Drs. Octavio Rosario, Jaida Butterfield, Sebastian Zaragoza and colleagues, with an educational elisabeth from [employer]. Thrive Questionnaire Date Thrive assessed: 02/20/25 I am a: Patient What is your living situation today?: I have a steady place to live Within the past 12 months, did the food you bought not last and you didn't have the money to get more?: Never true Within the past 12 months, did you worry whether your food would run out before you got money to buy more?: Never true Do you have trouble paying for medicines?: No Do you have trouble getting transportation to medical appointments?: No Do you have trouble paying your heating and electricity bill?: No Do you have trouble taking care of your child, family member or friend?: No Do you have trouble with day-to-day activities such as bathing, preparing meals, shopping, managing finances, etc.?: No Are you currently unemployed and looking for a job?: No Are you interested in more education?: No Please select the resources that you would like help with: None Currently or been in a relationship where the following occur: No concerns reported THRIVE Score: 0 AUDIT C Alcohol Use Questionnaire (AUDIT-C) 1. How often do you have a drink containing alcohol?: Never 3. How often do you have six or more drinks on one occasion?: Never Total Score: 0 VALERIO-7 AMB Questionnaire VALERIO-7 Date VALERIO - 7 assessed: 02/20/25 Feeling nervous, anxious, or on edge: 0 = Not at all Not being able to stop or control worryin = Not at all Worrying too much about different things: 0 = Not at all Trouble relaxin = Not at all Being so restless that it is hard to sit still: 0 = Not at all Becoming easily annoyed or irritable: 0 = Not at all Feeling afraid as if something awful might happen: 0 = Not at all Total VALERIO-7 score (0-4 normal; 5-9 mild; 10-14 moderate; 15-21 severe): 0 Source: Developed by Drs. Octavio Rosario, Jaida Butterfield, Sebastian Zaragoza and colleagues, with an educational elisabeth from [employer]. VALERIO-7 Assessment Billing VALERIO-7 Assessment Tool: VALERIO-7 Assessment 30588 Physical exam (Primary Care) Vital Signs: Last Vital Signs Temp 97.1 F 02/20/25 13:35 Pulse 79 02/20/25 13:35 Resp 12 02/20/25 13:35 BP 124/70 02/20/25 13:35 Pulse Ox 99 02/20/25 13:35 Oxygen Delivery Method Room Air 02/20/25 13:35 BMI result Body Mass Index 33.1 Tobacco/Smoking Status: Tobacco use Status Tobacco use date assessed 02/20/25 02/20/25 13:36 Patient Tobacco Use Status Former Tobacco user 02/20/25 13:36 Tobacco use type Cigarette 02/20/25 13:36 e-Cigarette/Vaping Use Never Used 02/20/25 13:36 PHQ-9: PHQ-9 Score PHQ-9: Total score 0 02/20/25 14:07 Depression Screening Interpretation: Negative Thrive Assessment: Date of Thrive Assessment Date Thrive assessed 02/20/25 02/20/25 13:36 Currently or been in a relationship where the following occur: No concerns reported Coding Level of Care Code Est Pt Level 4 (19300) Add On Problem Visit Only Diagnoses Paresthesia of left foot R20.2 Arthralgia of left ankle or foot M25.572 History of colonoscopy Z98.890 Chronic radicular pain of lower back M54.16; G89.29 Skin lesion L98.9 Additional Codes VALERIO-7 Assessment Billing - VALERIO-7 Assessment Tool: VALERIO-7 Assessment 37483 ([id number]) PHQ-9 - 86224 - PHQ-9 Billing: Yes ([id number]) Assessment & Plan Assessment & Plan (1) Paresthesia of left foot: Code(s): R20.2 - Paresthesia of skin Category: Medical (2) Arthralgia of left ankle or foot: Code(s): M25.572 - Pain in left ankle and joints of left foot Category: Medical (3) History of colonoscopy: Onset Date: ~01/27/25 Comment: [facility], + POLYP repeat 2027 Code(s): Z98.890 - Other specified postprocedural states Category: Surgical (4) Chronic radicular pain of lower back: Code(s): M54.16 - Radiculopathy, lumbar region; G89.29 - Other chronic pain Category: Medical (5) Skin lesion: Code(s): L98.9 - Disorder of the skin and subcutaneous tissue, unspecified Plan: left ankle Plan . Orders: Orders XR foot LT min 3V Today M25.572 - Pain in left ankle and joints of left foot, R20.2 - Paresthesia of skin XR ankle LT 2V Today M25.572 - Pain in left ankle and joints of left foot, R20.2 - Paresthesia of skin Medications: New gabapentin 100 mg PO BEDTIME 90 caps 0RF
[2025-02-20 13:35] VITALS: BP 124/70; PULSE 79; RESP 12; TEMP 36.2; O2SAT 99; BMI 33.1
--- OUTSIDE RECORDS SUMMARY | 2025-02-20 17:30 | XMS_ITS | Clinical Summary ---
Author Organization [facility] Address [address] [place] [address] Phone Care Team Providers Care Web Site Admin Name Role Phone Noemi Fernando SCREEN TACKER Primary Care Provider Allergies Active Allergy Reactions Criticality Noted Date Comments Lisinopril Cough 01/24/2025 Medications olmesartan (BENICAR) 20 mg tablet Take 10 mg by mouth every morning. 09/15/19 25 Active buPROPion (WELLBUTRIN XL) 300 MG ER 24 hr tablet Take 300 mg by mouth every morning. 09/15/19 25 Active celecoxib (CELEBREX) 100 MG capsule Take 100 mg by mouth 2 (two) times a day as needed. 01/25/20 25 Active CALCIUM ORAL Take by mouth. Ac tive Medication-Trey e Text Generic women's multivitamin gummy Active celecoxib (CELEBREX) 50 MG capsule TAKE 1 TO 2 CAPSULES BY MOUTH TWICE A DAY NEEDED FOR PAIN *USE SPARINGLY 06/16/19 25 025 Discontinued Encounters Date Type Department Care Team Description 01/31/2025 8:57 AM EST Anesthesia Event [facility] Admitting Dept Virtual Department [address] [place] [id number] Zafar Beach MD 01/31/2025 8:15 AM EST - 01/31/2025 8:30 AM EST Surgery [facility] Admitting Dept Virtual Department [address] [place] [address] Pepe López MD COLONOSCOPY 01/31/2025 6:59 AM EST - 01/31/2025 9:48 AM EST Hospital Encounter [facility] Ad[facility] Virtual Department [address] [place] [address] Pepe López MD Discharge Disposition: Home or Self Care 01/31/2025 Procedure Pass [facility] Admitting Dept Virtual Department [address] [place] [address] 01/24/2025 9:00 AM EST Pre-Admission Testing Pre Procedure Evaluation [address] [place] [address] Pepe López MD from Last 3 Months Social History [...] Intimate Partner Violence Answer Date R ecorded Are you denied basic needs s uch as food, clothing, or medical care? No 01/31/2025 In the past 12 months have y ou been in a relationship with a person who hurts, threatens, or tries to control you? No 01/31/2025 Are you denied basic needs s uch as food, clothing, or medical care? No 01/31/2025 In the past 12 months have y ou been in a relationship with a person who hurts, threatens, or tries to control you? No 01/31/2025 Comments Unknown Sex and Gender Information Value Date Recorded Sex Assigned at Not on file Legal Sex Female 1:24 PM EDT Gender Identity Not on file Sexual Orientation Not on file Last Filed Vital Signs Vital Sign Reading Time Taken Comments Blood Pressure 107/79 01/31/2025 9:31 AM EST Pulse 73 01/31/2025 9:31 AM EST Temperature 36.2 C (97.2 F) 01/31/2025 9:11 AM EST Respiratory Rate 18 01/31/2025 9:31 AM EST Oxygen Saturation 90% 01/31/2025 9:31 AM EST Inhaled Oxygen Concentration - - Weight 80.7 kg (178 lb) 01/24/2025 1:38 PM EST Height 160 cm (5' 3 ) 01/24/2025 1:38 PM EST Body Mass Index 31.53 01/24/2025 1:38 PM EST Plan of Treatment Health Maintenance Due Date Last Done Comments Adult Td,Tdap Booster 1965 CREATININE LEVEL 1965 LIPID PANEL 1967 POTASSIUM LEVEL 1967 DEPRESSION SCREENING 1979 HEPATITIS C SCREENING 06/26/1985 HIV ONE-TIME SCREENING (18-65 YEARS) 06/26/1985 PAP SMEAR 06/26/1988 SCREENING FOR DIABETES 06/26/2002 MAMMOGRAM 2007 COLOGUARD 06/26/2012 FIT TEST 06/26/2012 FOBT 06/26/2012 SIGMOIDOSCOPY 06/26/2012 VIRTUAL COLONOSCOPY 06/26/2012 PNEUMOCOCCAL VACCINES (50+ years) (2 of 2 - PCV) 07/22/2022 07/22/2021 COVID-19 VACCINE ( - season) 2024 01/24/2021, 06/16/2020, 05/26/2020 SMOKING Hx and SMOKELESS TOBACCO SCREENING 01/24/2026 01/24/2025 COLONOSCOPY 02/01/2028 01/31/2025 COLORECTAL CANCER SCREENING 02/01/2028 RSV VACCINE (1 - 1-dose 75+ series) 06/26/2042 ZOSTER VACCINES Completed 05/01/2020, 01/19/2020 INFLUENZA VACCINE Completed 01/04/2025, , 12/26/2022, Additional history exists HEPATITIS A VACCINES Aged Out No long [...] this topic Medical Devices Not on file Procedures Procedure Name Priority Date/Time Associated Diagnosis Comments TISSUE EXAM Routine 01/31/2025 9:01 AM EST ME COLSC FLX W/RMVL OF TUMOR POLYP LESION SNARE TQ 01/31/2025 8:54 AM EST History of colonic polyps Special Needs DIRECT ME COLONOSCOPY W/BIOPSY SINGLE/MULTIPLE 01/31/2025 8:54 AM EST History of colonic polyps Special Needs DIRECT ME COLONOSCOPY FLX DX W/COLLJ SPEC WHEN PFRMD 01/31/2025 8:54 AM EST History of colonic polyps Special Needs DIRECT ENDOSCOPY, COLON 01/31/2025 8:53 AM EST from Last 3 Months Results * Tissue Exam (01/31/2025 9:01 AM EST) Final Pathologic Diagnosis A. COLON POLYPS, 1 ASCENDING, 1 CECUM; POLYPECTOMY: Fragments of adenomatous colonic mucosa. Fragments of benign colonic mucosa with focal lymphoid aggregate. 02/05/2025 1:27 PM [facility] at 1327 EST Clinical History Pre-op diagnosis: History of colonic polyps [Z86.0100] 02/05/2025 1:27 PM [facility] Gross Description A. COLON; 1 ASCENDING, 1 CECUM: Received in formalin are 4 irregular roberto-pink mucosal tissue fragments varying in size from 0.3 x 0.2 x 0.1 cm up to 0.8 x 0.4 x 0.1 cm which are submitted in toto in a single cassette labeled A1. 02/05/2025 1:27 PM [facility] Grossed By Darek Olivera 02/05/2025 1:27 PM [facility] Result Priority Level Routine 02/05/2025 1:27 PM [facility] Disclaimer By their signature above, the pathologist listed as making the Final Diagnosis certifies that they have personally reviewed the case and confirmed the diagnosis. All slides and stains were of sufficient quality to establish the diagnosis, unless otherwise stated. Due to loss of elastic tension and/or tissue shrinkage in formalin, the clinical sizes of tissue specimens may be larger than those provided in this report. 02/05/2025 1:27 PM [facility] Procedure COLONOSCOPY 02/05/2025 1:27 PM EST [facility] Gastrointestinal Tissue (Colon) 01/31/2025 9:01 AM EST 01/31/2025 10:35 AM EST Comment:Pre-op diagnosis: History of colonic polyps [Z86.0100] us Pepe López MD LAB PATHOLOGY ORDERABLES Final R esult [address] [address] * ENDOSCOPY, COLON (01/31/2025 8:53 AM EST) Narrative Transcriptions Pepe López MD - 01/31/2025 8:53 AM EST [facility] Patient Name: Kaykay Colestoan Attending MD:: PEPE LÓPEZ MD, , Procedure Date: 01/31/2025 8:53 AM Date of : 1965 Age: 59 Admit Type: Outpatient Gender: Female Room: [place] [address] Referring MD: Noemi Fernando Exam Type: Colonoscopy Indications: High risk colon cancer surveillance: Personalhistory of colonic polyps Medications: Monitored Anesthesia Care Procedure: Informed consent was obtained from the patientafter discussion of the indications, limitations, alternatives, benefits, and risks of the procedure. Risks specifically discussed include but are not limited to medication reactions, missed lesions, bleeding, perforation, or the need for emergent surgery. Throughout the procedure, the patient's blood pressure, pulse, end-tidal CO2, and oxygensaturations were monitored continuously. The Olympus adult variable colonoscope [id number] #1 was introduced through the anus and advanced to the cecum, identified by appendiceal orifice andileocecal valve. The colonoscopy was performed without difficulty. The patient tolerated the procedurewell. The quality of the bowel preparation was excellent. The quality of the bowel preparation was evaluated using the BBPS ([place] Bowel Preparation Scale)with scores of: Right Colon = 3, Transverse Colon = 3and Left Colon = 3 (entire mucosa seen well with no residual staining, small fragments of stool oropaque liquid). The total BBPS score equals 9. Anatomical landmarks were photographed. Complications: No immediate complications. Estimated blood loss: Minimal. Findings: The perianal and digital rectal examinations were normal. A 3 mm polyp was found in the cecum. The polyp was sessile. The polyp was removed with a cold snare. Resection and retrieval were complete. A 10 mm polyp was found in the ascending colon. The polyp was sessile. The polyp was removed with acold snare. Resection and retrieval were complete. The exam was otherwise normal throughout theexamined colon. Impression: - One 3 mm polyp in the cecum, removed with a cold snare. Resected and retrieved. - One 10 mm polyp in the ascending colon, removedwith a cold snare. Resected and retrieved. Recommendation: - Discharge patient to home. - Await pathology results. - Repeat colonoscopy in 3 years for surveillance. PEPE LÓPEZ MD, 01/31/2025 9:42:10 AM This report has been signed electronically. Number of Addenda: 0 Note Initiated On: 01/31/2025 8:53 AM Procedure Code(s): --- Professional --- 61525, Colonoscopy, flexible; with removal of tumor(s), polyp(s), or other lesion(s) by snare technique --- Technical --- 06568, Colonoscopy, flexible; with removal of tumor(s), polyp(s), or other lesion(s) by snare technique Diagnosis Code(s): --- Professional --- Z86.010, Personal history of colonic polyps D12.0, Benign neoplasm of cecum D12.2, Benign neoplasm of ascending colon --- Technical --- Z86.010, Personal history of colonic polyps D12.0, Benign neoplasm of cecum D12.2, Benign neoplasm of ascending colon CPT copyright 2021 [employer]. All rights reserved. The codes documented in this report are preliminary and upon cooler man reviewmay be revised to meet current compliance requirements. Procedure Date: 01/31/2025 8:53:[address] [place] [id number] Noemi Fernando NP GI PROCEDURE ORDERABLES Final Result from Last 3 Months Insurance [facility] NON [facility] PCP [facility] [employer] [facility] PCP [employer] NON NSPG PCP [employer] [facility] [address] [place], [place] [address]ENSE NON NSPG PCP [employer] NON NSPG PCP S[facility] Care Teams Web Site Admin Relationship Specialty Start Date End Date Noemi Fernando NP [email or web address] PCP - General Nurse Practitioner 10/08/23 Additional Source Comments The information contained in this document represents components of the legal health record. It is not the complete legal health record.[facility]
--- OUTSIDE RECORDS SUMMARY | 2025-02-20 17:30 | XMS_ITS | Clinical Summary ---
Author Organization [address] [place] [address] Address [address] [place] [address] Phone Care Team Providers Care Pit Clerk Name Role Phone Noemi Blackman Primary Care [...] 06/26/1986 Cervical Cancer Screening: Pap Smear 06/26/1988 RSV Immunization Adult Patients (1 - Risk 50-74 years 1-dose series) 06/26/2017 Pneumococcal Vaccine: 50+ Years (2 of 2 - PCV) 07/22/2022 07/22/2021 Cholesterol Screening (Lipid Panel) 12/31/2023 HIV Screening 12/31/2023 Hepatitis C Screening 12/31/2023 Social Influencers of Health Screening 12/31/2023 Depression Screening 03/08/2024 Hypertension/CHF/CAD Annual BMP Blood Test 03/21/2024 COVID-19 Vaccine ( season) 2024 01/24/2021, 06/16/2020, 05/26/2020 Influenza Vaccine (#1) 2024 , 12/26/2022, 01/21/2022, Additional history exists Zoster Vaccines Completed 05/01/2020, 04/09, 01/19/2020 HIB [...] patient's age to complete this topic Insurance [facility] MEDICAID - [place] Care Teams Pit Clerk Relationship Specialty Start Date End Date Noemi Blackman FNP [address] [place] [phone] PCP - General Nurse Practitioner 03/03/24
--- OUTSIDE RECORDS SUMMARY | 2025-02-20 17:30 | XMS_ITS | Encounter Summary ---
Author Organization [facility] Address [address] [place] [phone] Phone Care Team Providers Care Food And Beverage Attendant Name Role Phone Noemi Fernando NP Primary Care Provider Encounter Details Date Type Department Care Team (Late st Contact Info) Description 01/31/2025 Procedure Pass [facility]oscopy Admitting Dept Virtual Department [address] [place] [address] Social History Tobacco Use Types Packs/Day Years Used Date Smoking Tobacco: Former Cigarettes Q uit: 1996 Smokeless Tobacco: Never Alcohol Use Standard Drinks/Week Comments Yes 1 [...] on file documented as of this encounter Functional Status * Calculated C-SSRS Risk Score (Lifetime/Recent) Answer Date of Assessment Author No Risk Indicated 01/31/2025 7:52 AM Yue Saravia RN * [place] Suicide Severity Rating Scale (Screener/Recent Self-Report) Question Answer Date of Assessment Author 1. Wish to be (Past 1 Month) No 025 7:52 AM Yue Saravia RN 2. Non-Specific Active Suici flavia Thoughts (Past 1 Month) No 01/31/2025 7:52 AM Yue Saravia RN 6. Suicidal Behavior (Lifetime) No 5 7:52 AM Yue Saravia RN documented as of this encounter Plan of Treatment Not on file documented as of this encounter Visit Diagnoses Not on filedocumented in this encounter Care Teams Food And Beverage Attendant Relationship Specialty Start Date End Date Noemi Fernando NP [email or web address] PCP - General Nurse Practitioner 10/08/23 documented as of this encounter Additional Source Comments The information contained in this document represents components of the legal health record. It is not the complete legal health record.[facility]
== END 2025-02-20 14:27 | disposition home or self-care (01) ==
LOC: HO.HMCFM 13:27
PROVIDERS: PCP Nurse Practitioner Family; Visit Provider Nurse Practitioner Family
DX: R20.2 Paresthesia of skin (principal); M25.572 Pain in left ankle and joints of left foot; Z98.890 Other specified postprocedural states; M54.16 Radiculopathy, lumbar region; G89.29 Other chronic pain; L98.9 Disorder of the skin and subcutaneous tissue, unspecified

== ENCOUNTER → 2025-02-20 13:26 | Outpatient (BNVA) | payer OTHER, SELFPAY | PROVIDERS: PCP Nurse Practitioner Family; Visit Provider Nurse Practitioner Family | DX: R20.2 Paresthesia of skin (principal); M25.572 Pain in left ankle and joints of left foot; M54.16 Radiculopathy, lumbar region; G89.29 Other chronic pain; L98.9 Disorder of the skin and subcutaneous tissue, unspecified; Z98.890 Other specified postprocedural states | CPT/HCPCS: 96127; 99212 ==